=== PATIENT | female | born 1930 | race Caucasian/White ===

== ENCOUNTER → 2017-04-07 | Outpatient (CLI) | payer MEDICARE, BC ==
[2015-08-08 15:00] VITALS: BP 164/89
[~2017-04-07] MED LIST: ATOR20TA PO; DABI75CA3 PO; FURO-69 PO; LEVO75TA PO; METO-269 PO
--- NOTE | 2017-04-07 14:28 | CARD ---
APPROVED REPORT EXAM: Two-dimensional and M-mode echocardiogram with Doppler and color Doppler. Other Information Quality : Good INDICATION Atrial Fibrillation 2D DIMENSIONS Left Atrium(2D)3.4 (1.6-4.0cm)IVSd1.0 (0.7-1.1cm) Aortic Root(2D)2.7 (2.0-3.7cm)LVDd3.9 (3.9-5.9cm) LVOT Diameter1.8 (1.8-2.4cm)PWd1.0 (0.7-1.1cm) LVDs2.8 (2.5-4.0cm)FS (%) 28.3 % SV37.0 mlLVEF(%)55.3 (>50%) Aortic Valve AoV Peak Teddy.144.8cm/sAoV VTI26.5cm AO Peak GR.8.4mmHgLVOT Peak Teddy.99.7cm/s AO Mean GR.4mmHgAVA (VMAX)1.70cm2 MILAD (VTI)1.80cm2 Mitral Valve MV E Oicenxiv81.7cm/sMV DECEL [id number] MV A Oprqnqbl09.5cm/sE/A Ratio0.8 Tricuspid Valve TR P. Qkmtvejg508oa/sRAP [id number] TR Peak Gr.06euZrYVAL75nlXu LEFT VENTRICLE The left ventricle is normal size. There is normal left ventricular wall thickness. Left ventricle sy stolic function is low normal. The Ejection Fraction is 50-55%. There is normal LV segmental wall mot ion. Tissue Doppler imaging reveals abnormal left ventricular diastolic dysfunction. RIGHT VENTRICLE The right ventricle is normal size. The right ventricular systolic function is normal. ATRIA The left atrium size is normal. The right atrium size is normal. The interatrial septum is intact wit h no evidence for an atrial septal defect or patent foramen ovale as noted on 2-D or Doppler imaging. AORTIC VALVE The aortic valve is mildly thickened but opens well. Doppler and Color Flow revealed trace to mild ao rtic regurgitation. There is no significant aortic valvular stenosis. MITRAL VALVE The mitral valve is calcified but opens well. There is no evidence of mitral valve prolapse. There is no mitral valve stenosis. Doppler and Color-flow revealed mild mitral regurgitation. TRICUSPID VALVE The tricuspid valve is normal in structure. Doppler and Color Flow revealed mild tricuspid regurgitat ion. The PA pressure was estimated at 27 mmHg. There is no tricuspid valve prolapse or vegetation. Th ere is no tricuspid valve stenosis. PULMONIC VALVE The pulmonary valve is normal in structure and function. Doppler and Color Flow revealed no pulmonic valvular regurgitation. There is no pulmonic valvular stenosis. GREAT VESSELS The aortic root is normal in size. The ascending aorta is normal in size. The IVC is normal in size a nd collapses >50% with inspiration. PERICARDIAL EFFUSION There is no pleural effusion. There is no evidence of significant pericardial effusion. Critical Notification Critical Value: No <Conclusion> The left ventricle is normal size. Left ventricle systolic function is low normal. The Ejection Fraction is 50-55%. There is no significant aortic valvular stenosis. Doppler and Color Flow revealed trace to mild aortic regurgitation. Doppler and Color-flow revealed mild mitral regurgitation. Doppler and Color Flow revealed mild tricuspid regurgitation. The PA pressure was estimated at 27 mmHg.
== END | disposition home or self-care (01) ==
LOC: ECHO 12:55
PROVIDERS: ATTEND Internal Medicine Cardiovascular Disease
DX: I08.1 Rheumatic disorders of both mitral and tricuspid valves (principal); I48.0 Paroxysmal atrial fibrillation
CPT/HCPCS: 93306

== ENCOUNTER 2018-07-19 14:35 | Inpatient (IN) | payer MEDICARE ==
[~2018-07-19] VITALS: Ht 154.9 cm; Wt 74.9 kg
[~2018-07-19 14:35] MED LIST changes: +AMLO10TA8 PO; +ASPI-630 PO; +ASPI325T11 PO; +CETI10TA16 PO; +IPRA3AMP29 NEB; +METO50TA4 PO; +OSEL30CA PO; +PRED20TA PO; +[UNRECOGNIZED DRUG - CODE] MC
[2018-07-19 15:51] LABS: BASO % 0 % (0-3); EOS # 0.1 x10^3/uL (0.0-0.7); EOS % 2 % (0-3); HEMATOCRIT 38.7 % (36.0-47.0); HEMOGLOBIN 12.7 g/dL (12.0-15.5); LYMPH # 1.8 x10^3/uL (1.0-4.8); LYMPH % 20 % (24-48); MEAN CORPUSCULAR HEMOGLOBIN 31 pg (25-35); MEAN CORPUSCULAR HGB CONC 33 g/dL (31-37); MEAN CORPUSCULAR VOLUME 95 fL (79-100); MONO # 0.6 x10^3/uL (0.0-1.1); MONO % 7 % (0-9); NEUT # 6.6 x10^3uL (1.8-7.7); NEUT % 72 % (31-73); PLATELET COUNT 356 x10^3/uL (140-400); RED BLOOD COUNT 4.05 x10^6/uL (3.50-5.40); RED CELL DISTRIBUTION WIDTH 15.1 % (11.5-14.5); WHITE BLOOD COUNT 9.3 x10^3/uL (4.0-11.0)
[2018-07-19 15:52] LABS: CALCIUM 9.5 mg/dL (8.5-10.1); CREATININE 1.1 mg/dL (0.6-1.0); GFR 46.8; POTASSIUM 3.4 mmol/L (3.5-5.1)
[2018-07-19 16:00] LABS: ALBUMIN 2.6 g/dL (3.4-5.0); ALBUMIN/GLOBULIN RATIO 0.7 (1.0-1.7); MAGNESIUM 2.3 mg/dL (1.8-2.4); TOTAL BILIRUBIN 0.4 mg/dL (0.2-1.0); TOTAL PROTEIN 6.3 g/dL (6.4-8.2)
[2018-07-19 16:02] LABS: PROTHROMBIN TIME PATIENT 14.7 SEC (11.7-14.0)
--- NOTE | 2018-07-19 16:16 | RAD ---
CHEST AP ONLY History: Short of breath Comparison: July 10, 2018. The heart size is mildly enlarged. Aorta is very tortuous. Air trapping compatible with emphysema. No evidence of a pneumothorax, pleural effusion or focal airspace consolidation. There are coarse markings in the right upper lobe, likely due to scarring or fibrosis, similar to previous exam. IMPRESSION: No acute infiltrate is seen. Right upper lobe markings appear chronic. Electronically signed by: Bethel Dawson MD (07/19/2018 4:13 PM) [facility]
--- NOTE | 2018-07-19 16:26 | RAD ---
CT HEAD WO CONTRAST Indication: DIZZINESS, HEADACHE
PREVIOUS Exposure: One or more of the following individualized dose reduction techniques were utilized for this examination: 1. Automated exposure control 2. Adjustment of the mA and/or kV according to patient size 3. Use of iterative reconstruction technique. Comparison: July 04, 2018. FINDINGS: Posterior fossa unremarkable. Generalized atrophy. No acute intracranial hemorrhage, mass effect, midline shift or abnormal extra-axial fluid collection. Low-density in the white matter bilaterally, a nonspecific finding, but which is commonly due to chronic small vessel ischemic disease in a patient of this age. Visualized orbits unremarkable. Partially visualized sinuses are clear. No evidence of acute skull abnormality. IMPRESSION: Chronic findings appear stable. No acute intracranial hemorrhage or mass effect. Electronically signed by: Bethel Dawson MD (07/19/2018 4:23 PM) [facility]
--- NOTE | 2018-07-19 16:54 | PHYS DOC ---
Past Medical History Past Medical History: Ovarian Cyst, TIA Additional Past Medical Histor: APHASIA Past Surgical History: Tonsillectomy Additional Past Surgical Histo: CYST REMOVED FROM OVARY Alcohol Use: None Drug Use: None Adult General Chief Complaint Chief Complaint: NEAR SYNCOPE [facility] HPI Patient is a 87 year old female who presents to the emergency department with complaints of continued generalized weakness and dizziness after recently being admitted for syncope and acute delirium related to influenza A. Patient states she was admitted from July 04 to July 15, 2018. she states that she continues to pass out even while sitting in her chair. She is afraid that she might fall, she denies any recent falls. she denies any fever, chest pain, shortness of breath, palpitations, nausea, vomiting, diarrhea, abdominal pain, vision changes, or swelling of extremities. she reports having frequent frontal intermittent headaches. She denies any pain at this time. Review of Systems Review of Systems Constitutional: Denies fever or chills [] Eyes: Denies change in visual acuity, redness, or eye pain [] HENT: Denies ear pain or sore throat; reports nasal congestion [] Respiratory: Denies wheezing,or shortness of breath; reports dry cough [] Cardiovascular: denies chest pain or palpitations,No additional information not addressed in HPI [] GI: Denies abdominal pain, nausea, vomiting, bloody stools or diarrhea [] : Denies dysuria or hematuria [] Musculoskeletal: Denies back pain or joint pain [] Integument: Denies rash or skin lesions [] Neurologic: Denies focal weakness or sensory changes; See HPI Endocrine: Denies polyuria or polydipsia [] Complete systems were reviewed and found to be within normal limits, except as documented in this note. Allergies Allergies Allergies Coded Allergies Type Severity Reaction Last Updated Verified Penicillins Allergy Intermediate 11/02/17 Yes Physical Exam Physical Exam Constitutional: Well developed, well nourished, no acute distress, non-toxic appearance. [] HENT: Normocephalic, atraumatic, bilateral external ears normal, oropharynx moist, no oral exudates, nose normal. [] Eyes: PERRLA, EOMI, conjunctiva normal, no discharge. [] Neck: Normal range of motion, no stridor. [] Cardiovascular:Heart rate regular rhythm, Lungs & Thorax: Bilateral breath sounds clear to auscultation [] Abdomen: Bowel sounds normal, soft, no tenderness, no masses, no pulsatile masses. [] Skin: Warm, dry, no erythema, no rash. [] Extremities: No cyanosis, ROM intact, no edema, no deformities. Neurologic: Alert and oriented X 3, normal motor function, normal sensory function, no focal deficits noted. [] Psychologic: Affect normal, judgement normal, mood normal. [] Current Patient Data Vital Signs Lab Values Laboratory Tests Test 07/19/18 15:37 White Blood Count 9.3 x10^3/uL (4.0-11.0) Red Blood Count 4.05 x10^6/uL (3.50-5.40) Hemoglobin 12.7 g/dL (12.0-15.5) Hematocrit 38.7 % (36.0-47.0) Mean Corpuscular Volume 95 fL (79-100) Mean Corpuscular Hemoglobin 31 pg (25-35) Mean Corpuscular Hemoglobin Concent 33 g/dL (31-37) Red Cell Distribution Width 15.1 % (11.5-14.5) H Platelet Count 356 x10^3/uL (140-400) Neutrophils (%) (Auto) 72 % (31-73) Lymphocytes (%) (Auto) 20 % (24-48) L Monocytes (%) (Auto) 7 % (0-9) Eosinophils (%) (Auto) 2 % (0-3) Basophils (%) (Auto) 0 % (0-3) Neutrophils # (Auto) 6.6 x10^3uL (1.8-7.7) Lymphocytes # (Auto) 1.8 x10^3/uL (1.0-4.8) Monocytes # (Auto) 0.6 x10^3/uL (0.0-1.1) Eosinophils # (Auto) 0.1 x10^3/uL (0.0-0.7) Basophils # (Auto) 0.0 x10^3/uL (0.0-0.2) Prothrombin Time 14.7 SEC (11.7-14.0) H Prothrombin Time INR 1.2 (0.8-1.1) H Sodium Level 143 mmol/L (136-145) Potassium Level 3.4 mmol/L (3.5-5.1) L Chloride Level 106 mmol/L (98-107) Carbon Dioxide Level 25 mmol/L (21-32) Anion Gap 12 (6-14) Blood Urea Nitrogen 26 mg/dL (7-20) H Creatinine 1.1 mg/dL (0.6-1.0) H Estimated GFR (Cockcroft-Gault) 46.8 BUN/Creatinine Ratio 24 (6-20) H Glucose Level 125 mg/dL (70-99) H Calcium Level 9.5 mg/dL (8.5-10.1) Magnesium Level 2.3 mg/dL (1.8-2.4) Total Bilirubin 0.4 mg/dL (0.2-1.0) Aspartate Amino Transferase (AST) 19 U/L (15-37) Alanine Aminotransferase (ALT) 26 U/L (14-59) Alkaline Phosphatase 76 U/L (46-116) Troponin I Quantitative 0.024 ng/mL (0.000-0.055) Total Protein 6.3 g/dL (6.4-8.2) L Albumin 2.6 g/dL (3.4-5.0) L Albumin/Globulin Ratio 0.7 (1.0-1.7) L Laboratory Tests 07/19/18 15:37 Laboratory Tests 07/19/18 15:37 EKG EKG 1527 SR Leftward axis, no STEMI rate 63, read by Dr. Kemp[] Radiology/Procedures Radiology/Procedures PROCEDURE: CHEST AP ONLY CHEST AP ONLY History: Short of breath Comparison: July 10, 2018. The heart size is mildly enlarged. Aorta is very tortuous. Air trapping compatible with emphysema. No evidence of a pneumothorax, pleural effusion or focal airspace consolidation. There are coarse markings in the right upper lobe, likely due to scarring or fibrosis, similar to previous exam. IMPRESSION: No acute infiltrate is seen. Right upper lobe markings appear chronic.[] PROCEDURE: CT HEAD WO CONTRAST CT HEAD WO CONTRAST Indication: DIZZINESS, HEADACHE
PREVIOUS Exposure: One or more of the following individualized dose reduction techniques were utilized for this examination: 1. Automated exposure control 2. Adjustment of the mA and/or kV according to patient size 3. Use of iterative reconstruction technique. Comparison: July 04, 2018. FINDINGS: Posterior fossa unremarkable. Generalized atrophy. No acute intracranial hemorrhage, mass effect, midline shift or abnormal extra-axial fluid collection. Low-density in the white matter bilaterally, a nonspecific finding, but which is commonly due to chronic small vessel ischemic disease in a patient of this age. Visualized orbits unremarkable. Partially visualized sinuses are clear. No evidence of acute skull abnormality. IMPRESSION: Chronic findings appear stable. No acute intracranial hemorrhage or mass effect. Course & Med Decision Making Course & Med Decision Making Pertinent Labs and Imaging studies reviewed. (See chart for details) dx: Generalized weakness, syncope [address] Wall [] Aly Disclaimer Dragmiley Disclaimer This electronic medical record was generated, in whole or in part, using a voice recognition dictation system. Departure Departure Impression: Primary Impression: Generalized weakness Additional Impression: Syncopal episodes Disposition: ADMITTED INPATIENT Admitting Physician: Berna Wall Condition: STABLE Referrals: VIGNESH HOWARD MD (PCP) Scripts Calcium Carbonate (CALCIUM CARBONATE) 200 Mg Tab.chew 1000 MG PO PRN AFTMEALHC PRN for INDIGESTION for 14 Days, #30 TAB.CHEW Prov: SERAFIN BARRAGAN MD 07/22/18 Potassium Chloride (KLOR-CON M20) 20 Meq Tab.er.prt 20 MEQ PO DAILYWBKFT for SUPPLEMENT for 14 Days, #14 TAB.SR Prov: SERAFIN BARRAGAN MD 07/22/18 Apixaban (ELIQUIS) 5 Mg Tablet 5 MG PO BID for LUNG CLOT for 7 Days, #14 TAB Prov: SERAFIN BARRAGAN MD 07/22/18 Problem Qualifiers Additional Impression: Syncopal episodes Syncope type: unspecified Qualified Codes: R55 - Syncope and collapse RIANA YOUNG ENVIRONMENTAL PERMITTING SPECIALIST Jul 19, 2018 16:54
[2018-07-19 19:02] LABS: BILIRUBIN,URINE NEGATIVE (NEG); CLARITY,URINE CLEAR; COLOR,URINE YELLOW; NITRITE,URINE NEGATIVE (NEG); PROTEIN,URINE NEGATIVE (NEG-TRACE)
[2018-07-19 19:13] LABS: RBC,URINE OCC /HPF (0-2)
[2018-07-19 19:14] LABS: BACTERIA,URINE MANY /HPF (0-FEW); SQUAMOUS EPITHELIAL CELL,UR MANY /LPF
--- NOTE | 2018-07-19 21:26 | PDOC1 ---
History and Physical Date of Admission Date of Admission DATE: 07/19/18 TIME: 21:22 History of Present Illness History of Present Illness Miss govea was hospitalized her 07/04 to 07/15 s/p syncope and acute deilrium related to Influenza A. she return to ER, with complaint that she still feels terrrible. She is weak, and has dizzyness and feels ill if she turns her head to the side. She still feels weak and that she might fall, and she complains that she is passing out while sitting in her chair. prior falls, none recent Past Medical History Cardiovascular: AFIB, HTN, GA Pulmonary: COPD CENTRAL NERVOUS SYSTEM: CVA Renal/: No pertinent hx Endocrine: Hypothyroidism Past Surgical History Past Surgical History: Appendectomy, Cholecystectomy, Tonsillectomy Family History Family History: Heart Disease, Hypertension Family History: Parent Social History Smoke: No ALCOHOL: none Drugs: None Current Problem List Problem List Problems Medical Problems: (1) Syncopal episodes Status: Acute Current Medications Current Medications Active Scripts Active Flyp Nebulizer (Nebulizer) 1 Each Each Each MC QIDPRN PRN PRN Cough/SOB 4 times daily for COPD/Influenza Duoneb 0.5-3(2.5) Mg/3 Ml (Albuterol/Ipratropium) 3 Ml Ampul.neb 3 Ml NEB RTQID 30 Days Prednisone 20 Mg Tablet 20 Mg PO DAILY 2 Days Toprol Xl (Metoprolol Succinate) 50 Mg Tab.er.24h 50 Mg PO BID 30 Days Amlodipine Besylate 10 Mg Tablet 10 Mg PO DAILY 30 Days Tamiflu (Oseltamivir Phosphate) 30 Mg Capsule 30 Mg PO BID 2 Days Aspirin Ec (Aspirin) 325 Mg Tablet.dr 1 Tab PO DAILY Cetirizine Hcl 10 Mg Tablet 10 Mg PO DAILY MDD 1 Reported Aspirin 81 Mg Tab.chew 1 Tab PO DAILY Lipitor (Atorvastatin Calcium) 20 Mg Tablet 20 Mg PO DAILY08 7 Days Pradaxa (Dabigatran Etexilate Mesylate) 75 Mg Capsule 75 Mg PO Synthroid (Levothyroxine Sodium) 75 Mcg Tablet 100 Mcg PO DAILY06 7 Days Lasix (Furosemide) 20 Mg Tablet 20 Mg PO Allergies Allergies: Coded Allergies: Penicillins (Verified Allergy, Intermediate, 11/02/17) ROS General: YES: Fatigue, Malaise, Appetite PSYCHOLOGICAL ROS: YES: Memory difficulties, Sleep disturbances Eyes: No Blurry vision, No Decreased vision, No Double vision, No Dry eyes, No Excessive tearing, No Eye Pain, No Itchy Eyes, No Loss of vision, No Photophobia , No Scotomata, No Uses contacts, No Uses glasses, No Other HEENT: YES: Vertigo; No: Heacaches, Visual Changes, Hearing change, Nasal congestion, Nasal discharge, Oral lesions, Sinus pain, Sore Throat, Epistaxis, Sneezing, Snoring, Tinnitus, Vocal changes, Other Respiratory: No: Cough, Hemoptysis, Orthopnea, Pleuritic Pain, Shortness of breath, SOB with excertion, Sputum Changes, Stridor, Tachypnea, Wheezing, Other Cardiovascular: No Chest Pain, No Palpitations, No Orthopnea, No Paroxysmal Noc. Dyspnea, No Edema, No Lt Headedness, No Other Gastrointestinal: No Nausea, No Vomiting, No Abdominal Pain, No Diarrhea, No Constipation, No Melena, No Hematochezia, No Other Genitourinary: No Dysuria, No Frequency, No Incontinence, No Hematuria, No Retention, No Discharge, No Urgency, No Pain, No Flank Pain, No Other, No , No , No , No , No , No , No Musculoskeletal: Yes Gait Disturbance, Yes Muscular Weakness Neurological: Yes Gait Disturbance; No Behavorial Changes, No Bowel/Bladder ControlChng, No Confusion, No Dizziness, No Headaches, No Impaired Coord/balance, No Memory Loss, No Numbness/ Tingling, No Seizures, No Speech Problems, No Tremors, No Visual Changes, No Weakness, No Other Skin: Yes Dry Skin; No Eczema, No Hair Changes, No Lumps, No Mole Changes, No Mottling, No Nail Changes, No Pruritus, No Rash, No Skin Lesion Changes, No Other, No Acne Physical Exam General: Alert, Oriented X3, No acute distress HEENT: Atraumatic, PERRLA, Mucous membr. moist/pink Lungs: Clear to auscultation, Normal air movement Heart: no murmurs Abdomen: Normal bowel sounds, Soft Extremities: No cyanosis, No edema Skin: No rashes, No significant lesion Neuro: Normal tone, Other (nystagmus, worst when realign to midline, no asterixis, finger to nose is poor, ) Vitals Vitals Vital Signs Date Time Temp Pulse Resp B/P (MAP) Pulse Ox O2 Delivery O2 Flow Rate FiO2 07/19/18 19:00 60 19 95 07/19/18 14:58 97.6 157/71 (99) Room Air 97.6 Labs Labs Laboratory Tests Test 07/19/18 15:37 07/19/18 18:52 07/19/18 19:25 White Blood Count 9.3 x10^3/uL (4.0-11.0) Red Blood Count 4.05 x10^6/uL (3.50-5.40) Hemoglobin 12.7 g/dL (12.0-15.5) Hematocrit 38.7 % (36.0-47.0) Mean Corpuscular Volume 95 fL (79-100) Mean Corpuscular Hemoglobin 31 pg (25-35) Mean Corpuscular Hemoglobin Concent 33 g/dL (31-37) Red Cell Distribution Width 15.1 % (11.5-14.5) Platelet Count 356 x10^3/uL (140-400) Neutrophils (%) (Auto) 72 % (31-73) Lymphocytes (%) (Auto) 20 % (24-48) Monocytes (%) (Auto) 7 % (0-9) Eosinophils (%) (Auto) 2 % (0-3) Basophils (%) (Auto) 0 % (0-3) Neutrophils # (Auto) 6.6 x10^3uL (1.8-7.7) Lymphocytes # (Auto) 1.8 x10^3/uL (1.0-4.8) Monocytes # (Auto) 0.6 x10^3/uL (0.0-1.1) Eosinophils # (Auto) 0.1 x10^3/uL (0.0-0.7) Basophils # (Auto) 0.0 x10^3/uL (0.0-0.2) Prothrombin Time 14.7 SEC (11.7-14.0) Prothromb Time International Ratio 1.2 (0.8-1.1) Sodium Level 143 mmol/L (136-145) Potassium Level 3.4 mmol/L (3.5-5.1) Chloride Level 106 mmol/L (98-107) Carbon Dioxide Level 25 mmol/L (21-32) Anion Gap 12 (6-14) Blood Urea Nitrogen 26 mg/dL (7-20) Creatinine 1.1 mg/dL (0.6-1.0) Estimated GFR (Cockcroft-Gault) 46.8 BUN/Creatinine Ratio 24 (6-20) Glucose Level 125 mg/dL (70-99) Calcium Level 9.5 mg/dL (8.5-10.1) Magnesium Level 2.3 mg/dL (1.8-2.4) Total Bilirubin 0.4 mg/dL (0.2-1.0) Aspartate Amino Transf (AST/SGOT) 19 U/L (15-37) Alanine Aminotransferase (ALT/SGPT) 26 U/L (14-59) Alkaline Phosphatase 76 U/L (46-116) Troponin I Quantitative 0.024 ng/mL (0.000-0.055) 0.031 ng/mL (0.000-0.055) Total Protein 6.3 g/dL (6.4-8.2) Albumin 2.6 g/dL (3.4-5.0) Albumin/Globulin Ratio 0.7 (1.0-1.7) Urine Collection Type Void Urine Color Yellow Urine Clarity Clear Urine pH 6.0 Urine Specific [place] 1.020 Urine Protein Negative mg/dL (NEG-TRACE) Urine Glucose (UA) Negative mg/dL (NEG) Urine Ketones (Stick) Negative mg/dL (NEG) Urine Blood Negative (NEG) Urine Nitrite Negative (NEG) Urine Bilirubin Negative (NEG) Urine Urobilinogen Dipstick 1.0 mg/dL (0.2 mg/dL) Urine Leukocyte Esterase Moderate (NEG) Urine RBC Occ /HPF (0-2) Urine WBC 11-20 /HPF (0-4) Urine Squamous Epithelial Cells Many /LPF Urine Bacteria Many /HPF (0-FEW) Urine Mucus Marked /LPF Laboratory Tests Test 07/19/18 15:37 07/19/18 18:52 07/19/18 19:25 White Blood Count 9.3 x10^3/uL (4.0-11.0) Red Blood Count 4.05 x10^6/uL (3.50-5.40) Hemoglobin 12.7 g/dL (12.0-15.5) Hematocrit 38.7 % (36.0-47.0) Mean Corpuscular Volume 95 fL (79-100) Mean Corpuscular Hemoglobin 31 pg (25-35) Mean Corpuscular Hemoglobin Concent 33 g/dL (31-37) Red Cell Distribution Width 15.1 % (11.5-14.5) Platelet Count 356 x10^3/uL (140-400) Neutrophils (%) (Auto) 72 % (31-73) Lymphocytes (%) (Auto) 20 % (24-48) Monocytes (%) (Auto) 7 % (0-9) Eosinophils (%) (Auto) 2 % (0-3) Basophils (%) (Auto) 0 % (0-3) Neutrophils # (Auto) 6.6 x10^3uL (1.8-7.7) Lymphocytes # (Auto) 1.8 x10^3/uL (1.0-4.8) Monocytes # (Auto) 0.6 x10^3/uL (0.0-1.1) Eosinophils # (Auto) 0.1 x10^3/uL (0.0-0.7) Basophils # (Auto) 0.0 x10^3/uL (0.0-0.2) Prothrombin Time 14.7 SEC (11.7-14.0) Prothromb Time International Ratio 1.2 (0.8-1.1) Sodium Level 143 mmol/L (136-145) Potassium Level 3.4 mmol/L (3.5-5.1) Chloride Level 106 mmol/L (98-107) Carbon Dioxide Level 25 mmol/L (21-32) Anion Gap 12 (6-14) Blood Urea Nitrogen 26 mg/dL (7-20) Creatinine 1.1 mg/dL (0.6-1.0) Estimated GFR (Cockcroft-Gault) 46.8 BUN/Creatinine Ratio 24 (6-20) Glucose Level 125 mg/dL (70-99) Calcium Level 9.5 mg/dL (8.5-10.1) Magnesium Level 2.3 mg/dL (1.8-2.4) Total Bilirubin 0.4 mg/dL (0.2-1.0) Aspartate Amino Transf (AST/SGOT) 19 U/L (15-37) Alanine Aminotransferase (ALT/SGPT) 26 U/L (14-59) Alkaline Phosphatase 76 U/L (46-116) Troponin I Quantitative 0.024 ng/mL (0.000-0.055) 0.031 ng/mL (0.000-0.055) Total Protein 6.3 g/dL (6.4-8.2) Albumin 2.6 g/dL (3.4-5.0) Albumin/Globulin Ratio 0.7 (1.0-1.7) Urine Collection Type Void Urine Color Yellow Urine Clarity Clear Urine pH 6.0 Urine Specific [place] 1.020 Urine Protein Negative mg/dL (NEG-TRACE) Urine Glucose (UA) Negative mg/dL (NEG) Urine Ketones (Stick) Negative mg/dL (NEG) Urine Blood Negative (NEG) Urine Nitrite Negative (NEG) Urine Bilirubin Negative (NEG) Urine Urobilinogen Dipstick 1.0 mg/dL (0.2 mg/dL) Urine Leukocyte Esterase Moderate (NEG) Urine RBC Occ /HPF (0-2) Urine WBC 11-20 /HPF (0-4) Urine Squamous Epithelial Cells Many /LPF Urine Bacteria Many /HPF (0-FEW) Urine Mucus Marked /LPF VTE Prophylaxis Ordered VTE Prophylaxis Devices: Yes VTE Pharmacological Prophylaxi: Yes Assessment/Plan Assessment/Plan dizzyness recent Influenza A causing Syncope. chronic encephalopathy. mild cognitive impairment w. 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 weakness and debility CONCEPCION CEHN MD Jul 19, 2018 21:26
[2018-07-19 23:47] VITALS: BP 105/69
[2018-07-20] VITALS (9 sets, daily range): BP systolic 105–127; BP diastolic 50–67
[2018-07-20] MEDS ORDERED: IPRATRPIUM/ALBUTEROL 0.5/2.5MG 3 ML NEBU. NEB ONE (01:15)
[2018-07-20] MEDS: LEVOTHYROXINE 100 MCG TABLET PO SCH (06:00)
[2018-07-20] MEDS: IPRATRPIUM/ALBUTEROL 0.5/2.5MG 3 ML NEBU. NEB SCH ×4 (07:17→20:34)
--- NOTE | 2018-07-20 07:17 | EKG ---
[facility] [address] [place] [address] Test Date: 2018-07-19 Test Time: 15:27:35 Pat Name: Emily GUERRERO Department: Room: [facility] 1 Gender: F Orthopaedic Doctor: : [id number] Requested By: RIANA YOUNG Order Number: [id number] Reading MD: Red Gregory Measurements Intervals [place] Rate: 63 P: ID: QRS: -27 QRSD: 80 T: -38 QT: 470 QTc: 485 Interpretive Statements SINUS RHYTHM LEFTWARD AXIS LOW LIMB LEAD VOLTAGE QRS(T) CONTOUR ABNORMALITY CONSIDER ANTEROSEPTAL MYOCARDIAL DAMAGE CONSISTENT WITH INFERIOR INFARCT PROBABLY OLD ABNORMAL ECG Electronically Signed On 07-28-2018 10:41:19 [employer]IPE WASHER by Red Gregory
[2018-07-20] MEDS ORDERED: FUROSEMIDE 20 MG TABLET PO SCH (09:00)
[2018-07-20] MEDS ORDERED: OSELTAMIVIR 30 MG CAPSULE PO SCH (09:00)
[2018-07-20] MEDS ORDERED: DABIGATRAN ETEXILATE 75 MG CAPSULE. PO SCH (09:00)
[2018-07-20] MEDS ORDERED: predniSONE 20 MG TABLET PO SCH (09:00)
--- NOTE | 2018-07-20 09:02 | NUR ---
SW responding to a referral regarding rehab. Chart reviewed. Pt lives at home with spouse. Pt has been at [facility] recently and was discharged with [facility]. SW notified Eloise at [facility] about hospital admission. PT/OT pending. SW will await for PT/OT recommendation to evaluate dc needs. Will continue to follow.
--- NOTE | 2018-07-20 12:51 | NUR ---
[facility] following pt. PT/OT recommends SNU. Spoke with pt at bedside regarding PT/OT recommendation. Pt declined SNU evaluation stating insurance has denied her a couple of time and she just wants to go home with [facility]. DECLAN informed pt she can try to be screened for SNU again but pt reported tomorrow is her 's birthday and she rather go home. Pt wants to continue home health with [facility] and wants to do therapy at home. Pt reported she will contact [facility]CL[facility] if she changes her mind. JELLY RN. Will continue to follow.
--- NOTE | 2018-07-20 13:30 | PDOC2 ---
CABRERA SAN DIRECTOR OF TRAINING 07/20/18 1330: CARDIAC CONSULT DATE OF CONSULT Date of Consult DATE: 07/20/18 TIME: 13:26 REASON FOR CONSULT Reason for Consult: Elevated troponin REFERRING PHYSICIAN Referring Physician: Dr. Ayon SOURCE Source: Chart review, Patient HISTORY OF PRESENT ILLNESS HISTORY OF PRESENT ILLNESS This is an 87 yo female who presented secondary to ongoing weakness, dizziness. Was hospitalized from 07/04-07/15/2018 secondary to near syncope and influenza. Returned to the ED yesterday as she continues to feel poor. Complains of dizziness and weakness. Dizziness much worse when she turns her head. Was very weak yesterday. Was unable to walk. Has brief passing out episodes. PAST MEDICAL HISTORY Past Medical History Cardiovascular: AFIB, HTN, HI Pulmonary: COPD CENTRAL NERVOUS SYSTEM: CVA ENT: No pertinent hx Renal/: No pertinent hx Endocrine: Hypothyroidism Dermatology: No pertinent hx PAST SURGICAL HISTORY Past Surgical History Appendectomy, Cholecystectomy, Tonsillectomy FAMILY HISTORY Family History: Hypertension SOCIAL HISTORY Social History Smoke: No ALCOHOL: none Drugs: None Lives: with Family CURRENT MEDICATIONS CURRENT MEDICATIONS Current Medications Medications (Trade) Dose Ordered Sig/Jamee Route PRN Reason Start Time Stop Time Status Last Admin Dose Admin Albuterol/ Ipratropium (Duoneb) 3 ml RTQID NEB 07/20/18 08:00 07/20/18 11:17 Albuterol/ Ipratropium (Duoneb) 3 ml 1X ONCE NEB 07/20/18 01:15 07/20/18 01:16 DC 07/20/18 01:19 ALLERGIES ALLERGIES: Coded Allergies: Penicillins (Verified Allergy, Intermediate, 11/02/17) ROS Review of System 14 point ROS conducted with pertinent positives noted above in HPI PHYSICAL EXAM PHYSICAL EXAM General: Alert, Oriented X3, Cooperative, No acute distress HEENT: Atraumatic, PERRLA, Lungs: Clear to auscultation Heart: Regular rate, Normal S1, Normal S2, No murmurs Abdomen: Normal bowel sounds, Soft Extremities: No edema Skin: No rashes Neuro: Normal speech Psych/Mental Status: Mental status NL, Mood NL MUSCULOSKELETAL: Osteoarthritic changes both hands VITALS VITALS Vital Signs Date Time Temp Pulse Resp B/P (MAP) Pulse Ox O2 Delivery O2 Flow Rate FiO2 07/20/18 11:17 94 Room Air 07/20/18 11:00 97.7 67 16 105/54 (71) 97.7 LABS Lab: Laboratory Tests Test 07/19/18 15:37 07/19/18 18:52 07/19/18 19:25 07/20/18 11:55 White Blood Count 9.3 x10^3/uL (4.0-11.0) Red Blood Count 4.05 x10^6/uL (3.50-5.40) Hemoglobin 12.7 g/dL (12.0-15.5) Hematocrit 38.7 % (36.0-47.0) Mean Corpuscular Volume 95 fL (79-100) Mean Corpuscular Hemoglobin 31 pg (25-35) Mean Corpuscular Hemoglobin Concent 33 g/dL (31-37) Red Cell Distribution Width 15.1 % (11.5-14.5) Platelet Count 356 x10^3/uL (140-400) Neutrophils (%) (Auto) 72 % (31-73) Lymphocytes (%) (Auto) 20 % (24-48) Monocytes (%) (Auto) 7 % (0-9) Eosinophils (%) (Auto) 2 % (0-3) Basophils (%) (Auto) 0 % (0-3) Neutrophils # (Auto) 6.6 x10^3uL (1.8-7.7) Lymphocytes # (Auto) 1.8 x10^3/uL (1.0-4.8) Monocytes # (Auto) 0.6 x10^3/uL (0.0-1.1) Eosinophils # (Auto) 0.1 x10^3/uL (0.0-0.7) Basophils # (Auto) 0.0 x10^3/uL (0.0-0.2) Prothrombin Time 14.7 SEC (11.7-14.0) Prothromb Time International Ratio 1.2 (0.8-1.1) Sodium Level 143 mmol/L (136-145) Potassium Level 3.4 mmol/L (3.5-5.1) Chloride Level 106 mmol/L (98-107) Carbon Dioxide Level 25 mmol/L (21-32) Anion Gap 12 (6-14) Blood Urea Nitrogen 26 mg/dL (7-20) Creatinine 1.1 mg/dL (0.6-1.0) Estimated GFR (Cockcroft-Gault) 46.8 BUN/Creatinine Ratio 24 (6-20) Glucose Level 125 mg/dL (70-99) Calcium Level 9.5 mg/dL (8.5-10.1) Magnesium Level 2.3 mg/dL (1.8-2.4) Total Bilirubin 0.4 mg/dL (0.2-1.0) Aspartate Amino Transf (AST/SGOT) 19 U/L (15-37) Alanine Aminotransferase (ALT/SGPT) 26 U/L (14-59) Alkaline Phosphatase 76 U/L (46-116) Troponin I Quantitative 0.024 ng/mL (0.000-0.055) 0.031 ng/mL (0.000-0.055) 0.029 ng/mL (0.000-0.055) Total Protein 6.3 g/dL (6.4-8.2) Albumin 2.6 g/dL (3.4-5.0) Albumin/Globulin Ratio 0.7 (1.0-1.7) Urine Collection Type Void Urine Color Yellow Urine Clarity Clear Urine pH 6.0 Urine Specific [place] 1.020 Urine Protein Negative mg/dL (NEG-TRACE) Urine Glucose (UA) Negative mg/dL (NEG) Urine Ketones (Stick) Negative mg/dL (NEG) Urine Blood Negative (NEG) Urine Nitrite Negative (NEG) Urine Bilirubin Negative (NEG) Urine Urobilinogen Dipstick 1.0 mg/dL (0.2 mg/dL) Urine Leukocyte Esterase Moderate (NEG) Urine RBC Occ /HPF (0-2) Urine WBC 11-20 /HPF (0-4) Urine Squamous Epithelial Cells Many /LPF Urine Bacteria Many /HPF (0-FEW) Urine Mucus Marked /LPF ECHOCARDIOGRAM ECHOCARDIOGRAM <Conclusion> The left ventricular systolic function is normal and the ejection fraction is within normal range. EF 55% There is grossly normal LV segmental wall motion. Technically difficult study. DATE: 11/04/171126 <Conclusion> The left ventricle is normal size. The left ventricular systolic function is normal and the ejection fraction is within normal range. The Ejection Fraction is 55-60%. There is borderline to mild concentric left ventricular hypertrophy. There is no significant aortic valvular stenosis. Doppler and Color Flow revealed trace aortic regurgitation. Doppler and Color-flow revealed trace mitral regurgitation. Doppler and Color Flow revealed mild tricuspid regurgitation. There is mild pulmonary hypertension. The PA pressure was estimated at 35 mmHg. DATE: 07/06/18 1550 ASSESSMENT/PLAN ASSESSMENT/PLAN 1. Syncope: mixed features of subjective vertigo and dizziness. 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 EKG and rhythm strips reviewed from previous admission on presents. Given new RBBB, will obtain CTA to rule out PE. 2. PAFIB: maintaining SR on Amiodarone. EF and WM nml 3. Hypertension; controlled 4. Hypothyroidism; TSH on goal. replacement therapy 5. H/o CVA; CT head negative for acute changes 6. Acute bronchitis/influenza 07/11 7. UTI Recommendations Continue Amiodarone/metoprolol for rate/rhythm control Poor candidate for OAC given increased fall risk Secondary prevention measures ASA/statin for stroke prophylaxis. Plan for outpatient event monitor AIDEN BIRD MD 07/20/182044: CARDIAC CONSULT ASSESSMENT/PLAN ASSESSMENT/PLAN Patient seen and examined. Agree with PHYSICIAN EXECUTIVE's assessment and plan. Syncope of uncertain etiology With history of PAF, we will rule out SSS/tachy-gelacio with outpatient event monitor Agree with CT chest to rule out PE secondary to new onset RBBB on EKG Continue amiodarone for antiarrhythmic therapy Thank you for your consultation CABRERA SAN APRN Jul 20, 2018 13:30 AIDEN BIRD MD Jul 20, 2018 20:45
--- NOTE | 2018-07-20 13:51 | PDOC ---
PROGRESS NOTES History of Present Illness History of Present Illness Assessment/Plan Assessment/Plan dizziness recent Influenza A ASSOCIATED Syncope. chronic encephalopathy. mild cognitive impairment w. 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 weakness and debility a-fib rate controlled high fall risk Cerebral atrophy. plan tele neurology consult PT/OT/ST cardiology consult may need snf bed Vitals Vitals Vital Signs Date Time Temp Pulse Resp B/P (MAP) Pulse Ox O2 Delivery O2 Flow Rate FiO2 07/20/18 11:17 94 Room Air 07/20/18 11:00 97.7 67 16 105/54 (71) 97.7 Physical Exam General: Alert, Oriented X3, Cooperative, No acute distress Heart: Other (irrr) Lungs: Clear, Other Abdomen: Normal bowel sounds, Soft Extremities: No clubbing, No cyanosis, No edema Skin: No rashes, No significant lesion Labs LABS EXAM: Brain MRI without contrast. HISTORY: Dizziness. TECHNIQUE: Multiplanar, multisequence magnetic resonance imaging of the brain was performed without contrast. COMPARISON: Head CT dated 07/04/2018. FINDINGS: There is no restricted diffusion to suggest acute or subacute infarction. There is no susceptibility effect to suggest hemorrhage. There is no mass effect or midline shift. There is ventricular enlargement due to cerebral volume loss. There is no hydrocephalus. There are focal and confluent areas of T2/FLAIR hyperintensity within the cerebral white matter and taz, a nonspecific finding likely due to chronic small vessel disease. There are small foci of encephalomalacia within the cerebellar hemispheres, likely due to chronic infarction. There is evidence of left lens surgery. The paranasal sinuses are unremarkable. There is a small amount of fluid within the right mastoid air cells. There are normal flow voids within the cerebral vessels. IMPRESSION: 1. No acute intracranial finding. 2. Multiple areas of signal change throughout the cerebral white matter and taz, a nonspecific finding likely due to chronic small vessel disease. 3. 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 4. Cerebral atrophy. Electronically signed by: Joann High MD (07/06/2018 8:00 AM) [facility] DICTATED and SIGNED BY: JOANN HIGH MD CT HEAD WO CONTRAST Indication: DIZZINESS, HEADACHE
PREVIOUS Exposure: One or more of the following individualized dose reduction techniques were utilized for this examination: 1. Automated exposure control 2. Adjustment of the mA and/or kV according to patient size 3. Use of iterative reconstruction technique. Comparison: July 04, 2018. FINDINGS: Posterior fossa unremarkable. Generalized atrophy. No acute intracranial hemorrhage, mass effect, midline shift or abnormal extra-axial fluid collection. Low-density in the white matter bilaterally, a nonspecific finding, but which is commonly due to chronic small vessel ischemic disease in a patient of this age. Visualized orbits unremarkable. Partially visualized sinuses are clear. No evidence of acute skull abnormality. IMPRESSION: Chronic findings appear stable. No acute intracranial hemorrhage or mass effect. Electronically signed by: Bethel Dawson MD (07/19/2018 4:23 PM) [facility] Laboratory Tests Test 07/19/18 15:37 07/19/18 18:52 07/19/18 19:25 07/20/18 11:55 White Blood Count 9.3 x10^3/uL (4.0-11.0) Red Blood Count 4.05 x10^6/uL (3.50-5.40) Hemoglobin 12.7 g/dL (12.0-15.5) Hematocrit 38.7 % (36.0-47.0) Mean Corpuscular Volume 95 fL (79-100) Mean Corpuscular Hemoglobin 31 pg (25-35) Mean Corpuscular Hemoglobin Concent 33 g/dL (31-37) Red Cell Distribution Width 15.1 % (11.5-14.5) Platelet Count 356 x10^3/uL (140-400) Neutrophils (%) (Auto) 72 % (31-73) Lymphocytes (%) (Auto) 20 % (24-48) Monocytes (%) (Auto) 7 % (0-9) Eosinophils (%) (Auto) 2 % (0-3) Basophils (%) (Auto) 0 % (0-3) Neutrophils # (Auto) 6.6 x10^3uL (1.8-7.7) Lymphocytes # (Auto) 1.8 x10^3/uL (1.0-4.8) Monocytes # (Auto) 0.6 x10^3/uL (0.0-1.1) Eosinophils # (Auto) 0.1 x10^3/uL (0.0-0.7) Basophils # (Auto) 0.0 x10^3/uL (0.0-0.2) Prothrombin Time 14.7 SEC (11.7-14.0) Prothromb Time International Ratio 1.2 (0.8-1.1) Sodium Level 143 mmol/L (136-145) Potassium Level 3.4 mmol/L (3.5-5.1) Chloride Level 106 mmol/L (98-107) Carbon Dioxide Level 25 mmol/L (21-32) Anion Gap 12 (6-14) Blood Urea Nitrogen 26 mg/dL (7-20) Creatinine 1.1 mg/dL (0.6-1.0) Estimated GFR (Cockcroft-Gault) 46.8 BUN/Creatinine Ratio 24 (6-20) Glucose Level 125 mg/dL (70-99) Calcium Level 9.5 mg/dL (8.5-10.1) Magnesium Level 2.3 mg/dL (1.8-2.4) Total Bilirubin 0.4 mg/dL (0.2-1.0) Aspartate Amino Transf (AST/SGOT) 19 U/L (15-37) Alanine Aminotransferase (ALT/SGPT) 26 U/L (14-59) Alkaline Phosphatase 76 U/L (46-116) Troponin I Quantitative 0.024 ng/mL (0.000-0.055) 0.031 ng/mL (0.000-0.055) 0.029 ng/mL (0.000-0.055) Total Protein 6.3 g/dL (6.4-8.2) Albumin 2.6 g/dL (3.4-5.0) Albumin/Globulin Ratio 0.7 (1.0-1.7) Urine Collection Type Void Urine Color Yellow Urine Clarity Clear Urine pH 6.0 Urine Specific [place] 1.020 Urine Protein Negative mg/dL (NEG-TRACE) Urine Glucose (UA) Negative mg/dL (NEG) Urine Ketones (Stick) Negative mg/dL (NEG) Urine Blood Negative (NEG) Urine Nitrite Negative (NEG) Urine Bilirubin Negative (NEG) Urine Urobilinogen Dipstick 1.0 mg/dL (0.2 mg/dL) Urine Leukocyte Esterase Moderate (NEG) Urine RBC Occ /HPF (0-2) Urine WBC 11-20 /HPF (0-4) Urine Squamous Epithelial Cells Many /LPF Urine Bacteria Many /HPF (0-FEW) Urine Mucus Marked /LPF Assessment and Plan Assessmemt and Plan Problems Medical Problems: (1) Syncopal episodes Status: Acute Goal 3 - Ambulation Device * Roller Walker Goal 3 Assessment * Appropriate - Continue Goal 4 - Stairs Assistance Required * Stand-by Assistance Goal 4 - Number of Stairs * 1 Goal 4 - Device on Stairs * Roller Walker Goal 4 Assessment * Appropriate - Continue Treatment Plan * Therapeutic Exercise * Bed Mobility Training * Transfer training * Gait Training * Neuromuscular Re-Ed * Dynamic Balance Training Frequency of Treatment Expected * 7 visits/week Duration of Treatment Expected * 2 weeks Discharge Recommendations * Snf Unit Discharge Recommendation - DME * Rolling Walker needed * in order to complete ADLs * and ambulation safely Discharge Recommendation Comments * Will continue to assess for discharge needs Comment Review of Relevant I have reviewed the following items erica (where applicable) has been applied. Labs Laboratory Tests Test 07/19/18 15:37 07/19/18 18:52 07/19/18 19:25 07/20/18 11:55 White Blood Count 9.3 x10^3/uL (4.0-11.0) Red Blood Count 4.05 x10^6/uL (3.50-5.40) Hemoglobin 12.7 g/dL (12.0-15.5) Hematocrit 38.7 % (36.0-47.0) Mean Corpuscular Volume 95 fL (79-100) Mean Corpuscular Hemoglobin 31 pg (25-35) Mean Corpuscular Hemoglobin Concent 33 g/dL (31-37) Red Cell Distribution Width 15.1 % (11.5-14.5) Platelet Count 356 x10^3/uL (140-400) Neutrophils (%) (Auto) 72 % (31-73) Lymphocytes (%) (Auto) 20 % (24-48) Monocytes (%) (Auto) 7 % (0-9) Eosinophils (%) (Auto) 2 % (0-3) Basophils (%) (Auto) 0 % (0-3) Neutrophils # (Auto) 6.6 x10^3uL (1.8-7.7) Lymphocytes # (Auto) 1.8 x10^3/uL (1.0-4.8) Monocytes # (Auto) 0.6 x10^3/uL (0.0-1.1) Eosinophils # (Auto) 0.1 x10^3/uL (0.0-0.7) Basophils # (Auto) 0.0 x10^3/uL (0.0-0.2) Prothrombin Time 14.7 SEC (11.7-14.0) Prothromb Time International Ratio 1.2 (0.8-1.1) Sodium Level 143 mmol/L (136-145) Potassium Level 3.4 mmol/L (3.5-5.1) Chloride Level 106 mmol/L (98-107) Carbon Dioxide Level 25 mmol/L (21-32) Anion Gap 12 (6-14) Blood Urea Nitrogen 26 mg/dL (7-20) Creatinine 1.1 mg/dL (0.6-1.0) Estimated GFR (Cockcroft-Gault) 46.8 BUN/Creatinine Ratio 24 (6-20) Glucose Level 125 mg/dL (70-99) Calcium Level 9.5 mg/dL (8.5-10.1) Magnesium Level 2.3 mg/dL (1.8-2.4) Total Bilirubin 0.4 mg/dL (0.2-1.0) Aspartate Amino Transf (AST/SGOT) 19 U/L (15-37) Alanine Aminotransferase (ALT/SGPT) 26 U/L (14-59) Alkaline Phosphatase 76 U/L (46-116) Troponin I Quantitative 0.024 ng/mL (0.000-0.055) 0.031 ng/mL (0.000-0.055) 0.029 ng/mL (0.000-0.055) Total Protein 6.3 g/dL (6.4-8.2) Albumin 2.6 g/dL (3.4-5.0) Albumin/Globulin Ratio 0.7 (1.0-1.7) Urine Collection Type Void Urine Color Yellow Urine Clarity Clear Urine pH 6.0 Urine Specific [place] 1.020 Urine Protein Negative mg/dL (NEG-TRACE) Urine Glucose (UA) Negative mg/dL (NEG) Urine Ketones (Stick) Negative mg/dL (NEG) Urine Blood Negative (NEG) Urine Nitrite Negative (NEG) Urine Bilirubin Negative (NEG) Urine Urobilinogen Dipstick 1.0 mg/dL (0.2 mg/dL) Urine Leukocyte Esterase Moderate (NEG) Urine RBC Occ /HPF (0-2) Urine WBC 11-20 /HPF (0-4) Urine Squamous Epithelial Cells Many /LPF Urine Bacteria Many /HPF (0-FEW) Urine Mucus Marked /LPF Laboratory Tests Test 07/19/18 15:37 07/19/18 18:52 07/19/18 19:25 07/20/18 11:55 White Blood Count 9.3 x10^3/uL (4.0-11.0) Red Blood Count 4.05 x10^6/uL (3.50-5.40) Hemoglobin 12.7 g/dL (12.0-15.5) Hematocrit 38.7 % (36.0-47.0) Mean Corpuscular Volume 95 fL (79-100) Mean Corpuscular Hemoglobin 31 pg (25-35) Mean Corpuscular Hemoglobin Concent 33 g/dL (31-37) Red Cell Distribution Width 15.1 % (11.5-14.5) Platelet Count 356 x10^3/uL (140-400) Neutrophils (%) (Auto) 72 % (31-73) Lymphocytes (%) (Auto) 20 % (24-48) Monocytes (%) (Auto) 7 % (0-9) Eosinophils (%) (Auto) 2 % (0-3) Basophils (%) (Auto) 0 % (0-3) Neutrophils # (Auto) 6.6 x10^3uL (1.8-7.7) Lymphocytes # (Auto) 1.8 x10^3/uL (1.0-4.8) Monocytes # (Auto) 0.6 x10^3/uL (0.0-1.1) Eosinophils # (Auto) 0.1 x10^3/uL (0.0-0.7) Basophils # (Auto) 0.0 x10^3/uL (0.0-0.2) Prothrombin Time 14.7 SEC (11.7-14.0) Prothromb Time International Ratio 1.2 (0.8-1.1) Sodium Level 143 mmol/L (136-145) Potassium Level 3.4 mmol/L (3.5-5.1) Chloride Level 106 mmol/L (98-107) Carbon Dioxide Level 25 mmol/L (21-32) Anion Gap 12 (6-14) Blood Urea Nitrogen 26 mg/dL (7-20) Creatinine 1.1 mg/dL (0.6-1.0) Estimated GFR (Cockcroft-Gault) 46.8 BUN/Creatinine Ratio 24 (6-20) Glucose Level 125 mg/dL (70-99) Calcium Level 9.5 mg/dL (8.5-10.1) Magnesium Level 2.3 mg/dL (1.8-2.4) Total Bilirubin 0.4 mg/dL (0.2-1.0) Aspartate Amino Transf (AST/SGOT) 19 U/L (15-37) Alanine Aminotransferase (ALT/SGPT) 26 U/L (14-59) Alkaline Phosphatase 76 U/L (46-116) Troponin I Quantitative 0.024 ng/mL (0.000-0.055) 0.031 ng/mL (0.000-0.055) 0.029 ng/mL (0.000-0.055) Total Protein 6.3 g/dL (6.4-8.2) Albumin 2.6 g/dL (3.4-5.0) Albumin/Globulin Ratio 0.7 (1.0-1.7) Urine Collection Type Void Urine Color Yellow Urine Clarity Clear Urine pH 6.0 Urine Specific [place] 1.020 Urine Protein Negative mg/dL (NEG-TRACE) Urine Glucose (UA) Negative mg/dL (NEG) Urine Ketones (Stick) Negative mg/dL (NEG) Urine Blood Negative (NEG) Urine Nitrite Negative (NEG) Urine Bilirubin Negative (NEG) Urine Urobilinogen Dipstick 1.0 mg/dL (0.2 mg/dL) Urine Leukocyte Esterase Moderate (NEG) Urine RBC Occ /HPF (0-2) Urine WBC 11-20 /HPF (0-4) Urine Squamous Epithelial Cells Many /LPF Urine Bacteria Many /HPF (0-FEW) Urine Mucus Marked /LPF Medications Current Medications Albuterol/ Ipratropium (Duoneb) 3 ml RTQID NEB Last administered on 07/20/18at 11:17; Start 07/20/18 at 08:00 Albuterol/ Ipratropium (Duoneb) 3 ml 1X ONCE NEB Last administered on at 01:19; Start 07/20/18 at 01:15; Stop 07/20/18 at 01:16; Status DC Amlodipine Besylate (Norvasc) 10 mg DAILY PO ; Start 07/20/18 at 09:00 Aspirin (Ecotrin) 325 mg DAILYWBKFT PO ; Start 07/20/18 at 08:00 Atorvastatin Calcium (Lipitor) 20 mg DAILY08 PO ; Start 07/20/18 at 08:00 Cetirizine HCl (ZyrTEC) 10 mg DAILY PO ; Start 07/20/18 at 09:00 Dabigatran (Pradaxa) 75 mg DAILY PO ; Start 07/20/18 at 09:00 Furosemide (Lasix) 20 mg DAILY PO ; Start 07/20/18 at 09:00 Levothyroxine Sodium (Synthroid) 100 mcg DAILY06 PO ; Start 07/20/18 at 06:00 Metoprolol Succinate (Toprol Xl) 50 mg BID PO ; Start 07/20/18 at 09:00 Oseltamivir Phosphate (Tamiflu) 30 mg BID PO ; Start 07/20/18 at 09:00; Stop 07/25/18 at 08:59 Prednisone (Prednisone) 20 mg DAILY PO ; Start 07/20/18 at 09:00 Active Scripts Active Flyp Nebulizer (Nebulizer) 1 Each Each Each MC QIDPRN PRN PRN Cough/SOB 4 times daily for COPD/Influenza Duoneb 0.5-3(2.5) Mg/3 Ml (Albuterol/Ipratropium) 3 Ml Ampul.neb 3 Ml NEB RTQID 30 Days Prednisone 20 Mg Tablet 20 Mg PO DAILY 2 Days Toprol Xl (Metoprolol Succinate) 50 Mg Tab.er.24h 50 Mg PO BID 30 Days Amlodipine Besylate 10 Mg Tablet 10 Mg PO DAILY 30 Days Tamiflu (Oseltamivir Phosphate) 30 Mg Capsule 30 Mg PO BID 2 Days Aspirin Ec (Aspirin) 325 Mg Tablet.dr 1 Tab PO DAILY Cetirizine Hcl 10 Mg Tablet 10 Mg PO DAILY MDD 1 Reported Aspirin 81 Mg Tab.chew 1 Tab PO DAILY Lipitor (Atorvastatin Calcium) 20 Mg Tablet 20 Mg PO DAILY08 7 Days Pradaxa (Dabigatran Etexilate Mesylate) 75 Mg Capsule 75 Mg PO Synthroid (Levothyroxine Sodium) 75 Mcg Tablet 100 Mcg PO DAILY06 7 Days Lasix (Furosemide) 20 Mg Tablet 20 Mg PO Vitals/I & O Vital Sign - Last 24 Hours 07/19/18 07/19/18 07/19/18 07/19/18 14:58 15:30 16:00 16:30 Temp 97.6 97.6 Pulse 62 62 64 60 Resp 20 18 18 20 B/P (MAP) 157/71 (99) Pulse Ox 93 94 93 94 O2 Delivery Room Air 07/19/18 07/19/18 07/19/18 07/19/18 17:00 17:30 18:00 18:30 Pulse 58 60 58 56 Resp 16 16 16 18 Pulse Ox 95 97 95 94 07/19/18 07/19/18 07/19/18 07/20/18 19:00 20:00 23:47 01:14 Temp 97.9 97.9 Pulse 60 60 Resp 19 18 B/P (MAP) 105/69 (81) Pulse Ox 95 94 O2 Delivery Room Air Room Air Room Air 07/20/18 07/20/18 07/20/18 07/20/18 01:20 03:31 07:00 07:17 Temp 97.8 97.5 97.8 97.5 Pulse 68 72 Resp 18 16 B/P (MAP) 109/58 (75) 127/65 (85) Pulse Ox 94 93 95 93 O2 Delivery Room Air Room Air Room Air Room Air 07/20/18 07/20/18 07/20/18 07:57 11:00 11:17 Temp 97.7 97.7 Pulse 67 Resp 16 B/P (MAP) 105/54 (71) Pulse Ox 95 94 O2 Delivery Room Air Room Air Room Air Intake and Output 07/19/18 07/19/18 07/20/18 14:59 22:59 06:59 Intake Total 200 ml Balance 200 ml SERAFIN BARRAGAN MD Jul 20, 2018 13:50
--- NOTE | 2018-07-20 14:49 | NUR ---
DECLAN following pt. Per pt request, DECLAN met with pt again about dc plan. Spoke with pt and son, Av regarding PT/OT recommendation. Pt now wants to see if insurance will approve SNU this time after discussing with her children. [facility] DECLAN phoned and faxed referral to [facility]. Pt admission and acceptance pending. DECLAN will continue to follow.
[2018-07-20] MEDS ORDERED: AMIO200T4 PO (15:23)
[2018-07-20] MEDS ORDERED: AMIODARONE HCL 200 MG TABLET. PO ONE (15:30)
[2018-07-20] MEDS: ASPIRIN ENTERIC COATED 325 MG TABLET.DR. PO SCH (15:37)
[2018-07-20] MEDS: ATORVASTATIN CALCIUM 20 MG TABLET PO SCH (15:38)
[2018-07-20] MEDS: CETIRIZINE HCL 10 MG TABLET. PO SCH (15:38)
[2018-07-20] MEDS: METOPROLOL SUCC 24HR ER 50 MG TAB.ER.24H. PO SCH ×2 (15:38→20:24)
[2018-07-20] MEDS: amLODIPine BESYLATE 10 MG TABLET PO SCH (15:39)
[2018-07-20] MEDS ORDERED: CALCIUM CARBONATE 500 MG TAB.CHEW PO PRN (16:00)
[2018-07-20] MEDS ORDERED: POTASSIUM CHLORIDE 20 MEQ TABLET.ER. PO ONE (17:15)
--- NOTE | 2018-07-20 17:38 | PDOC2 ---
NEUROLOGY CONSULT Date of Admission Date of Admission DATE: 07/20/18 TIME: 17:25 Reason for Consult Reason for Consult: Generalized weakness. UTI. AFib, Hx COPD. Fall. Hx of LA. 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 Obesity. RECOMMENDATIONS/PLAN: Continue ASA 325 mg daily. Continue Lipitor HS. Treat medical diseases. Lab: see orders. 12-lead EKG. OT/PT. HISTORY OF THE PRESENT ILLNESS: This is an 87-y-old female who presented to the ER of [facility] with complaints of generalized weakness this time stating feeling weak in the entire body. 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 No focalized sensory or motor deficits. PAST MEDICAL HISTORY Past Medical History Cardiovascular: AFIB, HTN, LA Pulmonary: COPD CENTRAL NERVOUS SYSTEM: CVA ENT: No pertinent hx Renal/: No pertinent hx Endocrine: Hypothyroidism Dermatology: No pertinent hx PAST SURGICAL HISTORY Appendectomy, Cholecystectomy, Tonsillectomy FAMILY HISTORY Family History: Hypertension SOCIAL HISTORY Social History Smoke: No ALCOHOL: none Drugs: None Lives: with Family ALLERGIES Coded Allergies: Penicillins (Verified Allergy, Intermediate, 11/02/17) MEDICATIONS: Refer to [facility] REVIEW OF SYSTEMS: Constitutional: Obesity. Head: No traumatic brain or head injury. Skin: No edema, or rash. Ear: No infection. Eyes: No vision loss or color blindness. Nose: No bleeding or purulent discharges. Hearing: hearing decrease. Neck: No injury. Breast: No history of cancer, masses,or discharges. Cardiac: LA, CAD, HTN, HLD. Pulmonary: COPD. GI: No GI ulcer, GI bleeding. Urinary/genital: UTI. Endocrinologic: Obesity. Skeletomuscular: No muscular atrophy, deformity. Neurological: see HP. Psychiatric: Denies drug use/abuse. Otherwise, not [id number] review of systems. PHYSICAL EXAMINATION: General appearance is in subacute distress. HEENT: Normocephalic and nontraumatic. Eyes, nose, ears, and throat are unremarkable. Neck is supple. No lymphadenopathy. No crepitus. Cardiovascular: S1, S2, regular rate and rhythm. Pulmonary: Clear to auscultation bilaterally. Abdomen: Bowel sounds are positive. Abdomen is soft, nontender, and nondistended. Extremities: No rash, lesions, or edema. No restriction of range of motion NEUROLOGICAL EXAMINATION: Awake. Oriented to time, place and person. PERRL. EOMI. CN: no focal findings. Muscle tone: within normal. Muscle strength: 4+ DTR: 2- Plantar reflex: Flexor response bilaterally Gait: not examined in chair. Sensory exam: no abnormal findings. No acute cerebellar signs elicited. F-T-N test fine. Current Medications Current Medications Current Medications Albuterol/ Ipratropium (Duoneb) 3 ml RTQID NEB Last administered on 07/20/18 15:22; Start 07/20/18 at 08:00 Albuterol/ Ipratropium (Duoneb) 3 ml 1X ONCE NEB Last administered on 01:19; Start 07/20/18 at 01:15; Stop 07/20/18 at 01:16; Status DC Amlodipine Besylate (Norvasc) 10 mg DAILY PO Last administered on 07/20/18 15: 39; Start 07/20/18 at 09:00 Aspirin (Ecotrin) 325 mg DAILYWBKFT PO Last administered on 07/20/18 15:37; Start 07/20/18 at 08:00 Atorvastatin Calcium (Lipitor) 20 mg DAILY08 PO Last administered on 07/20/18 15:38; Start 07/20/18 at 08:00 Cetirizine HCl (ZyrTEC) 10 mg DAILY PO Last administered on 07/20/18at 15:38; Start 07/20/18 at 09:00 Dabigatran (Pradaxa) 75 mg DAILY PO ; Start 07/20/18 at 09:00; Stop 07/20/18 at 15:28; Status DC Furosemide (Lasix) 20 mg DAILY PO ; Start 07/20/18 at 09:00; Status Cancel Levothyroxine Sodium (Synthroid) 100 mcg DAILY06 PO ; Start 07/20/18 at 06:00 Metoprolol Succinate (Toprol Xl) 50 mg BID PO Last administered on 07/20/18 15 :38; Start 07/20/18 at 09:00 Oseltamivir Phosphate (Tamiflu) 30 mg BID PO ; Start 07/20/18 at 09:00; Stop 07/25/18 at 08:59; Status Cancel Prednisone (Prednisone) 20 mg DAILY PO ; Start 07/20/18 at 09:00; Stop 07/20/18 at 15:28; Status DC Amiodarone HCl (Cordarone) 400 mg 1X ONCE PO Last administered on 07/20/18at 15 :38; Start 07/20/18 at 15:30; Stop 07/20/18 at 15:31; Status DC Amiodarone HCl (Cordarone) 200 mg DAILY PO ; Start 07/21/18 at 09:00 Calcium Carbonate/ Glycine (Tums) 1,000 mg PRN AFTMEALHC PRN PO INDIGESTION Last administered on 07/20/18at 16:01; Start 07/20/18 at 16:00 Potassium Chloride (Klor-Con) 20 meq 1X ONCE PO ; Start 07/20/18 at 17:15; Stop 07/20/18 at 17:18; Status DC Potassium Chloride (Klor-Con) 20 meq DAILYWBKFT PO ; Start 07/21/18 at 08:00 Active Scripts Active Flyp Nebulizer (Nebulizer) 1 Each Each Each QIDPRN PRN PRN Cough/SOB 4 times daily for COPD/Influenza Duoneb 0.5-3(2.5) Mg/3 Ml (Albuterol/Ipratropium) 3 Ml Ampul.neb 3 Ml NEB RTQID 30 Days Toprol Xl (Metoprolol Succinate) 50 Mg Tab.er.24h 50 Mg PO BID 30 Days Amlodipine Besylate 10 Mg Tablet 10 Mg PO DAILY 30 Days Aspirin Ec (Aspirin) 325 Mg Tablet.dr 1 Tab PO DAILY Cetirizine Hcl 10 Mg Tablet 10 Mg PO DAILY MDD 1 Reported Amiodarone Hcl 200 Mg Tablet 1 Tab PO DAILY Lipitor (Atorvastatin Calcium) 20 Mg Tablet 20 Mg PO DAILY08 7 Days Synthroid (Levothyroxine Sodium) 75 Mcg Tablet 100 Mcg PO DAILY06 7 Days Allergies Allergies: Allergies Coded Allergies Type Severity Reaction Last Updated Verified Penicillins Allergy Intermediate 11/02/17 Yes ROS Review of System The patient denies any associated fevers, chills, headache, ear pain, rhinorrhea , sore throat, stiff neck, productive cough, chest pain, shortness of breath, back or flank pain, abdominal pain, nausea, vomiting, diarrhea, constipation, dysuria, rash, numbness, weakness, tingling, incontinence, difficulty ambulating, or diaphoresis. Physical Exam Physical Exam General: Well developed, well nourished, no acute distress, well appearing HEENT: Pupils equally round and reactive to light, EOMI, no discharge, normal conjunctiva Neck: Supple, no nuchal rigidity, no JVD, trachea midline, no tenderness Cardiac: RRR, no murmurs, no gallops, no rubs Chest/Lungs: CTAB, no wheeze, no rhonchi, no crackles Abdomen: soft, non-distended, no guarding, no peritoneal signs, non-tender Back: No tenderness Extremities: no edema, pulses intact, non-tender,capillary refill <3 sec bilateral upper and lower extremities, Neuro: Alert and oriented x 4, no focal deficits, normal speech Vitals Vitals: Vital Signs Date Time Temp Pulse Resp B/P (MAP) Pulse Ox O2 Delivery O2 Flow Rate FiO2 07/20/18 15:39 72 108/50 07/20/18 15:22 95 Room Air 07/20/18 14:43 97.5 16 97.5 Labs Labs Laboratory Tests Test 07/19/18 15:37 07/19/18 18:52 07/19/18 19:25 07/20/18 11:55 White Blood Count 9.3 x10^3/uL (4.0-11.0) Red Blood Count 4.05 x10^6/uL (3.50-5.40) Hemoglobin 12.7 g/dL (12.0-15.5) Hematocrit 38.7 % (36.0-47.0) Mean Corpuscular Volume 95 fL (79-100) Mean Corpuscular Hemoglobin 31 pg (25-35) Mean Corpuscular Hemoglobin Concent 33 g/dL (31-37) Red Cell Distribution Width 15.1 % (11.5-14.5) Platelet Count 356 x10^3/uL (140-400) Neutrophils (%) (Auto) 72 % (31-73) Lymphocytes (%) (Auto) 20 % (24-48) Monocytes (%) (Auto) 7 % (0-9) Eosinophils (%) (Auto) 2 % (0-3) Basophils (%) (Auto) 0 % (0-3) Neutrophils # (Auto) 6.6 x10^3uL (1.8-7.7) Lymphocytes # (Auto) 1.8 x10^3/uL (1.0-4.8) Monocytes # (Auto) 0.6 x10^3/uL (0.0-1.1) Eosinophils # (Auto) 0.1 x10^3/uL (0.0-0.7) Basophils # (Auto) 0.0 x10^3/uL (0.0-0.2) Prothrombin Time 14.7 SEC (11.7-14.0) Prothromb Time International Ratio 1.2 (0.8-1.1) Sodium Level 143 mmol/L (136-145) Potassium Level 3.4 mmol/L (3.5-5.1) Chloride Level 106 mmol/L (98-107) Carbon Dioxide Level 25 mmol/L (21-32) Anion Gap 12 (6-14) Blood Urea Nitrogen 26 mg/dL (7-20) Creatinine 1.1 mg/dL (0.6-1.0) Estimated GFR (Cockcroft-Gault) 46.8 BUN/Creatinine Ratio 24 (6-20) Glucose Level 125 mg/dL (70-99) Calcium Level 9.5 mg/dL (8.5-10.1) Magnesium Level 2.3 mg/dL (1.8-2.4) Total Bilirubin 0.4 mg/dL (0.2-1.0) Aspartate Amino Transf (AST/SGOT) 19 U/L (15-37) Alanine Aminotransferase (ALT/SGPT) 26 U/L (14-59) Alkaline Phosphatase 76 U/L (46-116) Troponin I Quantitative 0.024 ng/mL (0.000-0.055) 0.031 ng/mL (0.000-0.055) 0.029 ng/mL (0.000-0.055) Total Protein 6.3 g/dL (6.4-8.2) Albumin 2.6 g/dL (3.4-5.0) Albumin/Globulin Ratio 0.7 (1.0-1.7) Urine Collection Type Void Urine Color Yellow Urine Clarity Clear Urine pH 6.0 Urine Specific [place] 1.020 Urine Protein Negative mg/dL (NEG-TRACE) Urine Glucose (UA) Negative mg/dL (NEG) Urine Ketones (Stick) Negative mg/dL (NEG) Urine Blood Negative (NEG) Urine Nitrite Negative (NEG) Urine Bilirubin Negative (NEG) Urine Urobilinogen Dipstick 1.0 mg/dL (0.2 mg/dL) Urine Leukocyte Esterase Moderate (NEG) Urine RBC Occ /HPF (0-2) Urine WBC 11-20 /HPF (0-4) Urine Squamous Epithelial Cells Many /LPF Urine Bacteria Many /HPF (0-FEW) Urine Mucus Marked /LPF Laboratory Tests Test 07/19/18 18:52 07/19/18 19:25 07/20/18 11:55 Urine Collection Type Void Urine Color Yellow Urine Clarity Clear Urine pH 6.0 Urine Specific [place] 1.020 Urine Protein Negative mg/dL (NEG-TRACE) Urine Glucose (UA) Negative mg/dL (NEG) Urine Ketones (Stick) Negative mg/dL (NEG) Urine Blood Negative (NEG) Urine Nitrite Negative (NEG) Urine Bilirubin Negative (NEG) Urine Urobilinogen Dipstick 1.0 mg/dL (0.2 mg/dL) Urine Leukocyte Esterase Moderate (NEG) Urine RBC Occ /HPF (0-2) Urine WBC 11-20 /HPF (0-4) Urine Squamous Epithelial Cells Many /LPF Urine Bacteria Many /HPF (0-FEW) Urine Mucus Marked /LPF Troponin I Quantitative 0.031 ng/mL (0.000-0.055) 0.029 ng/mL (0.000-0.055) PAXTON RIZO MD Jul 20, 2018 17:38
--- NOTE | 2018-07-20 18:07 | EKG ---
[facility] [address] [place] [address] Test Date: 2018-07-20 Test Time: 17:55:01 Pat Name: Emily GUERRERO Department: Room: [facility] Gender: F [employer]er: KELLI : 1930 Requested By: PAXTON RIZO Order Number: [id number] Reading MD: Red Gregory Measurements Intervals [place] Rate: 76 P: 124 [place]: 170 QRS: -156 QRSD: 80 T: 119 QT: 426 QTc: 484 Interpretive Statements SINUS RHYTHM T ABNORMALITY IN ANTERIOR LEADS LATERAL LEADS ABNORMAL ECG Electronically Signed On 07-28-2018 10:49:56 [employer]ING [employer] by Red Gregory
[2018-07-21 03:35] VITALS: BP 120/63
[2018-07-21] MEDS: IPRATRPIUM/ALBUTEROL 0.5/2.5MG 3 ML NEBU. NEB SCH ×4 (05:57→20:00)
[2018-07-21] MEDS: LEVOTHYROXINE 100 MCG TABLET PO SCH (06:00)
[2018-07-21 07:15] VITALS: BP 111/54
[2018-07-21] MEDS ORDERED: IOHEXOL 350 MG/ML 100 ML VIAL. IV ONE (07:30)
[2018-07-21] MEDS ORDERED: CONTRAST GIVEN. MC PRN (07:45)
[2018-07-21] MEDS: ATORVASTATIN CALCIUM 20 MG TABLET PO SCH (08:00)
[2018-07-21] MEDS: POTASSIUM CHLORIDE 20 MEQ TABLET.ER. PO SCH (08:00)
[2018-07-21] MEDS: ASPIRIN ENTERIC COATED 325 MG TABLET.DR. PO SCH (08:00)
[2018-07-21] MEDS: CETIRIZINE HCL 10 MG TABLET. PO SCH (09:00)
[2018-07-21] MEDS: METOPROLOL SUCC 24HR ER 50 MG TAB.ER.24H. PO SCH ×2 (09:00→20:46)
[2018-07-21] MEDS: amLODIPine BESYLATE 10 MG TABLET PO SCH (09:00)
[2018-07-21] MEDS: AMIODARONE HCL 200 MG TABLET. PO SCH (09:00)
--- NOTE | 2018-07-21 09:03 | PDOC ---
PROGRESS NOTES History of Present Illness History of Present Illness Assessment/Plan dizziness recent Influenza A ASSOCIATED Syncope. chronic encephalopathy. mild cognitive impairment w. 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 weakness and debility a-fib rate controlled high fall risk Cerebral atrophy. Pulmonary emboli in the left upper lobe, also probable small focus superior left lower lobe. NEW BY CTA 07/21 plan With history of PAF, we will rule out SSS/tachy-gelacio with outpatient event monitor CT chest to rule out PE POS 07/21 tele neurology consult PT/OT/ST cardiology consult may need snf bed IV HEPARIN PROTOCOL 07/21 STILL VERY WEAK WITH AMBULATION Vitals Vitals Vital Signs Date Time Temp Pulse Resp B/P (MAP) Pulse Ox O2 Delivery O2 Flow Rate FiO2 07/21/18 07:48 Room Air 07/21/18 07:15 98.5 74 18 111/54 (73) 95 98.5 Physical Exam General: Alert, Oriented X3, Cooperative, No acute distress, mild distress Heart: Regular rate, Other (irrr) Lungs: Clear, Other Abdomen: Normal bowel sounds, Soft Extremities: No clubbing, No cyanosis, No edema Skin: No rashes, No significant lesion Labs LABS Chest CTA History: Syncope, right bundle branch block Technique: After bolus of intravenous contrast, CT imaging was performed of the chest. Multiplanar reconstruction images to include MIP reconstruction images are submitted. Exposure: One or more of the following individualized dose reduction techniques were utilized for this examination: 1. Automated exposure control 2. Adjustment of the mA and/or kV according to patient size 3. Use of iterative reconstruction technique. Comparison: Noncontrast chest CT November 03, 2017 Findings: [There is some motion degradation.] There are some pulmonary emboli of the left upper lobe branches, also likely small focus superior left lower lobe. There are trace pleural effusions bilaterally. There is no pneumothorax. There is emphysema. There is again fibrotic change near right lung apex. Thoracic aortic caliber is within normal limits without intraluminal flap. There is small likely cyst of the visualized left kidney. There has been cholecystectomy. There are calcified subcarinal nodes. There is mild lower lobe bronchial wall thickening bilaterally. There is multilevel thoracic spondylosis. There is mild coronary calcification. There is thoracic levoscoliosis. Impression: 1. There are some pulmonary emboli in the left upper lobe, also probable small focus superior left lower lobe. There are trace pleural effusions bilaterally. 2. There is mild lower lobe bronchial wall thickening bilaterally, could be associated with bronchitis. FOR INTERNAL CODING PURPOSES Critical result: Findings discussed with patient's nurse Varsha at 07/21/2018 11:20 AM, to inform doctor of findings. Laboratory Tests Test 07/20/18 11:55 Troponin I Quantitative 0.029 ng/mL (0.000-0.055) Vitamin B12 Level 713 pg/mL (247-911) Assessment and Plan Assessmemt and Plan Problems Medical Problems: (1) Syncopal episodes Status: Acute Comment Review of Relevant I have reviewed the following items erica (where applicable) has been applied. Labs Laboratory Tests Test 07/19/18 15:37 07/19/18 18:52 07/19/18 19:25 07/20/18 11:55 White Blood Count 9.3 x10^3/uL (4.0-11.0) Red Blood Count 4.05 x10^6/uL (3.50-5.40) Hemoglobin 12.7 g/dL (12.0-15.5) Hematocrit 38.7 % (36.0-47.0) Mean Corpuscular Volume 95 fL (79-100) Mean Corpuscular Hemoglobin 31 pg (25-35) Mean Corpuscular Hemoglobin Concent 33 g/dL (31-37) Red Cell Distribution Width 15.1 % (11.5-14.5) Platelet Count 356 x10^3/uL (140-400) Neutrophils (%) (Auto) 72 % (31-73) Lymphocytes (%) (Auto) 20 % (24-48) Monocytes (%) (Auto) 7 % (0-9) Eosinophils (%) (Auto) 2 % (0-3) Basophils (%) (Auto) 0 % (0-3) Neutrophils # (Auto) 6.6 x10^3uL (1.8-7.7) Lymphocytes # (Auto) 1.8 x10^3/uL (1.0-4.8) Monocytes # (Auto) 0.6 x10^3/uL (0.0-1.1) Eosinophils # (Auto) 0.1 x10^3/uL (0.0-0.7) Basophils # (Auto) 0.0 x10^3/uL (0.0-0.2) Prothrombin Time 14.7 SEC (11.7-14.0) Prothromb Time International Ratio 1.2 (0.8-1.1) Sodium Level 143 mmol/L (136-145) Potassium Level 3.4 mmol/L (3.5-5.1) Chloride Level 106 mmol/L (98-107) Carbon Dioxide Level 25 mmol/L (21-32) Anion Gap 12 (6-14) Blood Urea Nitrogen 26 mg/dL (7-20) Creatinine 1.1 mg/dL (0.6-1.0) Estimated GFR (Cockcroft-Gault) 46.8 BUN/Creatinine Ratio 24 (6-20) Glucose Level 125 mg/dL (70-99) Calcium Level 9.5 mg/dL (8.5-10.1) Magnesium Level 2.3 mg/dL (1.8-2.4) Total Bilirubin 0.4 mg/dL (0.2-1.0) Aspartate Amino Transf (AST/SGOT) 19 U/L (15-37) Alanine Aminotransferase (ALT/SGPT) 26 U/L (14-59) Alkaline Phosphatase 76 U/L (46-116) Troponin I Quantitative 0.024 ng/mL (0.000-0.055) 0.031 ng/mL (0.000-0.055) 0.029 ng/mL (0.000-0.055) Total Protein 6.3 g/dL (6.4-8.2) Albumin 2.6 g/dL (3.4-5.0) Albumin/Globulin Ratio 0.7 (1.0-1.7) Urine Collection Type Void Urine Color Yellow Urine Clarity Clear Urine pH 6.0 Urine Specific [place] 1.020 Urine Protein Negative mg/dL (NEG-TRACE) Urine Glucose (UA) Negative mg/dL (NEG) Urine Ketones (Stick) Negative mg/dL (NEG) Urine Blood Negative (NEG) Urine Nitrite Negative (NEG) Urine Bilirubin Negative (NEG) Urine Urobilinogen Dipstick 1.0 mg/dL (0.2 mg/dL) Urine Leukocyte Esterase Moderate (NEG) Urine RBC Occ /HPF (0-2) Urine WBC 11-20 /HPF (0-4) Urine Squamous Epithelial Cells Many /LPF Urine Bacteria Many /HPF (0-FEW) Urine Mucus Marked /LPF Vitamin B12 Level 713 pg/mL (247-911) Laboratory Tests Test 07/20/18 11:55 Troponin I Quantitative 0.029 ng/mL (0.000-0.055) Vitamin B12 Level 713 pg/mL (247-911) Medications Current Medications Albuterol/ Ipratropium (Duoneb) 3 ml RTQID NEB Last administered on 07/21/18at 05:57; Start 07/20/18 at 08:00 Albuterol/ Ipratropium (Duoneb) 3 ml 1X ONCE NEB Last administered on at 01:19; Start 07/20/18 at 01:15; Stop 07/20/18 at 01:16; Status DC Amlodipine Besylate (Norvasc) 10 mg DAILY PO Last administered on 07/20/18 15: 39; Start 07/20/18 at 09:00 Aspirin (Ecotrin) 325 mg DAILYWBKFT PO Last administered on 07/20/18at 15:37; Start 07/20/18 at 08:00 Atorvastatin Calcium (Lipitor) 20 mg DAILY08 PO Last administered on 07/20/18 15:38; Start 07/20/18 at 08:00 Cetirizine HCl (ZyrTEC) 10 mg DAILY PO Last administered on 07/20/18at 15:38; Start 07/20/18 at 09:00 Dabigatran (Pradaxa) 75 mg DAILY PO ; Start 07/20/18 at 09:00; Stop 07/20/18 at 15:28; Status DC Furosemide (Lasix) 20 mg DAILY PO ; Start 07/20/18 at 09:00; Status Cancel Levothyroxine Sodium (Synthroid) 100 mcg DAILY06 PO Last administered on at 06:00; Start 07/20/18 at 06:00 Metoprolol Succinate (Toprol Xl) 50 mg BID PO Last administered on 07/20/18at 20 :24; Start 07/20/18 at 09:00 Oseltamivir Phosphate (Tamiflu) 30 mg BID PO ; Start 07/20/18 at 09:00; Stop 07/25/18 at 08:59; Status Cancel Prednisone (Prednisone) 20 mg DAILY PO ; Start 07/20/18 at 09:00; Stop 07/20/18 at 15:28; Status DC Amiodarone HCl (Cordarone) 400 mg 1X ONCE PO Last administered on 07/20/18at 15 :38; Start 07/20/18 at 15:30; Stop 07/20/18 at 15:31; Status DC Amiodarone HCl (Cordarone) 200 mg DAILY PO ; Start 07/21/18 at 09:00 Calcium Carbonate/ Glycine (Tums) 1,000 mg PRN AFTMEALHC PRN PO INDIGESTION Last administered on 07/20/18at 16:01; Start 07/20/18 at 16:00 Potassium Chloride (Klor-Con) 20 meq 1X ONCE PO Last administered on at 18:13; Start 07/20/18 at 17:15; Stop 07/20/18 at 17:18; Status DC Potassium Chloride (Klor-Con) 20 meq DAILYWBKFT PO ; Start 07/21/18 at 08:00 Iohexol (Omnipaque 350 Mg/ml) 75 ml 1X ONCE IV ; Start 07/21/18 at 07:30; Stop 07/21/18 at 07:34; Status DC Info (CONTRAST GIVEN -- Rx MONITORING) 1 each PRN DAILY PRN MC SEE COMMENTS; Start 07/21/18 at 07:45; Stop 07/23/18 at 07:44 Active Scripts Active Flyp Nebulizer (Nebulizer) 1 Each Each Each MC QIDPRN PRN PRN Cough/SOB 4 times daily for COPD/Influenza Duoneb 0.5-3(2.5) Mg/3 Ml (Albuterol/Ipratropium) 3 Ml Ampul.neb 3 Ml NEB RTQID 30 Days Toprol Xl (Metoprolol Succinate) 50 Mg Tab.er.24h 50 Mg PO BID 30 Days Amlodipine Besylate 10 Mg Tablet 10 Mg PO DAILY 30 Days Aspirin Ec (Aspirin) 325 Mg Tablet.dr 1 Tab PO DAILY Cetirizine Hcl 10 Mg Tablet 10 Mg PO DAILY MDD 1 Reported Amiodarone Hcl 200 Mg Tablet 1 Tab PO DAILY Lipitor (Atorvastatin Calcium) 20 Mg Tablet 20 Mg PO DAILY08 7 Days Synthroid (Levothyroxine Sodium) 75 Mcg Tablet 100 Mcg PO DAILY06 7 Days Vitals/I & O Vital Sign - Last 24 Hours 07/20/18 07/20/18 07/20/18 07/20/18 11:00 11:17 12:30 12:35 Temp 97.7 97.7 Pulse 67 68 75 Resp 16 B/P (MAP) 105/54 (71) 115/56 (75) 124/67 (86) Pulse Ox 95 94 O2 Delivery Room Air Room Air 07/20/18 07/20/18 07/20/18 07/20/18 12:40 14:43 15:22 15:38 Temp 97.5 97.5 Pulse 78 72 72 Resp 16 B/P (MAP) 117/61 (79) 108/50 (69) 108/50 Pulse Ox 93 95 O2 Delivery Room Air Room Air 07/20/18 07/20/18 07/20/18 07/20/18 15:38 15:39 19:25 20:05 Temp 98.5 98.5 Pulse 72 72 71 Resp 16 B/P (MAP) 108/50 108/50 106/50 (68) Pulse Ox 93 O2 Delivery Room Air Room Air 07/20/18 07/20/18 07/20/18 07/21/18 20:24 20:34 23:30 03:35 Temp 98.3 98.3 98.3 98.3 Pulse 71 72 Resp 18 18 B/P (MAP) 106/50 117/55 (75) 120/63 (82) Pulse Ox 95 94 96 O2 Delivery Room Air Room Air Room Air 07/21/18 07/21/18 07/21/18 05:58 07:15 07:48 Temp 98.5 98.5 Pulse 74 Resp 18 B/P (MAP) 111/54 (73) Pulse Ox 96 95 O2 Delivery Room Air Room Air Room Air SERAFIN BARRAGAN MD Jul 21, 2018 09:03
--- NOTE | 2018-07-21 09:21 | NUR ---
DECLAN following pt. Pt has been accepted at [facility] pending insurance approval. Insurance auth for [facility] pending. Will continue to follow.
[2018-07-21 11:17] VITALS: BP 119/58
--- NOTE | 2018-07-21 11:23 | RAD ---
Chest CTA History: Syncope, right bundle branch block Technique: After bolus of intravenous contrast, CT imaging was performed of the chest. Multiplanar reconstruction images to include MIP reconstruction images are submitted. Exposure: One or more of the following individualized dose reduction techniques were utilized for this examination: 1. Automated exposure control 2. Adjustment of the mA and/or kV according to patient size 3. Use of iterative reconstruction technique. Comparison: Noncontrast chest CT November 03, 2017 Findings: [There is some motion degradation.] There are some pulmonary emboli of the left upper lobe branches, also likely small focus superior left lower lobe. There are trace pleural effusions bilaterally. There is no pneumothorax. There is emphysema. There is again fibrotic change near right lung apex. Thoracic aortic caliber is within normal limits without intraluminal flap. There is small likely cyst of the visualized left kidney. There has been cholecystectomy. There are calcified subcarinal nodes. There is mild lower lobe bronchial wall thickening bilaterally. There is multilevel thoracic spondylosis. There is mild coronary calcification. There is thoracic levoscoliosis. Impression: 1. There are some pulmonary emboli in the left upper lobe, also probable small focus superior left lower lobe. There are trace pleural effusions bilaterally. 2. There is mild lower lobe bronchial wall thickening bilaterally, could be associated with bronchitis. FOR INTERNAL CODING PURPOSES Critical result: Findings discussed with patient's nurse Varsha at 07/21/2018 11:20 AM, to inform doctor of findings. RESULT CODE: (C) Electronically signed by: Gavino Saldana MD (07/21/2018 11:21 AM) [id number]
[2018-07-21] MEDS ORDERED: HEPARIN 25,000UTS/500ML PREMIX 500 ML IV PRN (11:45)
[2018-07-21] MEDS ORDERED: HEPARIN for IV BOLUS 10,000 UNIT/10 ML VIAL. IV PRN ×2 (11:45)
--- NOTE | 2018-07-21 12:29 | RAD ---
EXAM: Bilateral lower extremity venous Doppler sonogram. HISTORY: PE. Pain and swelling. TECHNIQUE: [place] scale and color Doppler sonographic evaluation of the bilateral lower extremity veins with spectral waveform analysis was performed. FINDINGS: There is normal color flow, normal compressibility and there are normal spectral waveforms in the common femoral, superficial femoral, popliteal, posterior tibial and greater saphenous veins. IMPRESSION: No Doppler evidence of lower extremity deep venous thrombosis. Electronically signed by: Joann High MD (07/21/2018 12:27 PM) [place] [id number]
[2018-07-21 13:47] LABS: BASO # 0.1 x10^3/uL (0.0-0.2); BASO % 1 % (0-3); EOS # 0.2 x10^3/uL (0.0-0.7); EOS % 3 % (0-3); HEMATOCRIT 38.7 % (36.0-47.0); HEMOGLOBIN 12.7 g/dL (12.0-15.5); LYMPH # 1.1 x10^3/uL (1.0-4.8); LYMPH % 13 % (24-48); MEAN CORPUSCULAR HEMOGLOBIN 31 pg (25-35); MEAN CORPUSCULAR HGB CONC 33 g/dL (31-37); MEAN CORPUSCULAR VOLUME 93 fL (79-100); MONO # 0.6 x10^3/uL (0.0-1.1); MONO % 7 % (0-9); NEUT # 6.7 x10^3uL (1.8-7.7); NEUT % 77 % (31-73); PLATELET COUNT 310 x10^3/uL (140-400); RED BLOOD COUNT 4.15 x10^6/uL (3.50-5.40); RED CELL DISTRIBUTION WIDTH 14.8 % (11.5-14.5); WHITE BLOOD COUNT 8.7 x10^3/uL (4.0-11.0)
[2018-07-21 14:26] LABS: CALCIUM 9.2 mg/dL (8.5-10.1); CREATININE 1.1 mg/dL (0.6-1.0); GFR 46.8; POTASSIUM 3.8 mmol/L (3.5-5.1)
[2018-07-21 15:08] VITALS: BP 116/51
--- NOTE | 2018-07-21 17:01 | PDOC ---
KG ROLDAN CLASSIFICATION ANALYST 07/21/18 1701: CARDIO Progress Notes Date and Time Date of Service 07/21/2018 Time of Evaluation 1600 Subjective Subjective: No Chest Pain, No shortness of breath, No Palpitations, Other ( belching) Vitals Vitals Vital Signs Date Time Temp Pulse Resp B/P (MAP) Pulse Ox O2 Delivery O2 Flow Rate FiO2 07/21/18 15:12 97 Room Air 07/21/18 15:08 98.2 70 20 116/51 (72) 98.2 Weight Weight [ ] Input and Output Intake and Output Intake and Output 07/21/18 07:00 # Voids 4 Laboratory Labs Laboratory Tests Test 07/21/18 13:40 White Blood Count 8.7 x10^3/uL (4.0-11.0) Red Blood Count 4.15 x10^6/uL (3.50-5.40) Hemoglobin 12.7 g/dL (12.0-15.5) Hematocrit 38.7 % (36.0-47.0) Mean Corpuscular Volume 93 fL (79-100) Mean Corpuscular Hemoglobin 31 pg (25-35) Mean Corpuscular Hemoglobin Concent 33 g/dL (31-37) Red Cell Distribution Width 14.8 % (11.5-14.5) Platelet Count 310 x10^3/uL (140-400) Neutrophils (%) (Auto) 77 % (31-73) Lymphocytes (%) (Auto) 13 % (24-48) Monocytes (%) (Auto) 7 % (0-9) Eosinophils (%) (Auto) 3 % (0-3) Basophils (%) (Auto) 1 % (0-3) Neutrophils # (Auto) 6.7 x10^3uL (1.8-7.7) Lymphocytes # (Auto) 1.1 x10^3/uL (1.0-4.8) Monocytes # (Auto) 0.6 x10^3/uL (0.0-1.1) Eosinophils # (Auto) 0.2 x10^3/uL (0.0-0.7) Basophils # (Auto) 0.1 x10^3/uL (0.0-0.2) Sodium Level 141 mmol/L (136-145) Potassium Level 3.8 mmol/L (3.5-5.1) Chloride Level 107 mmol/L (98-107) Carbon Dioxide Level 27 mmol/L (21-32) Anion Gap 7 (6-14) Blood Urea Nitrogen 23 mg/dL (7-20) Creatinine 1.1 mg/dL (0.6-1.0) Estimated GFR (Cockcroft-Gault) 46.8 Glucose Level 167 mg/dL (70-99) Calcium Level 9.2 mg/dL (8.5-10.1) Physical Exam HEENT: Neck Supple W Full Motion LUNGS: Clear to Auscultation Heart: S1S2, RRR (SR) Abdomen: Soft N/T Extremities: No Calf Tenderness Neurology: alert, oriented, follow commands Assessment Assessment 1. Syncope: potentially as a result of PE. RBBB new, vector change due to PE confirmed with CTA 2. Known dizziness/vertigo with high risk for falls: due to her past cerebellar infarctions. 3. PAFIB: maintaining SR on Amiodarone. EF and WM nml 4. Hypertension; controlled 5. Hypothyroidism; TSH on goal. replacement therapy 6. H/o CVA; CT head negative for acute changes 7. .Recent flu 8. UTI 9. PE Recommendations 1. Continue Amiodarone/metoprolol for rate/rhythm control 2. May need IVC filter. poor mobility due to #2. venous doppler LE. Heparin per VTE protocol. Consult pulmonary. 3. ASA/statin for stroke prophylaxis. 4. Supportive care. AIDEN BIRD MD 07/21/182055: CARDIO Progress Notes Assessment Assessment Patient seen and examined. Agree with FORGING PRESS OPERATOR's assessment and plan. CTA confirmed PE - pulm team consulted. Agree with IVCF Maintaining sinus rhythm with amiodarone We will consider outpatient event monitor KG ROLDAN APRN Jul 21, 2018 17:01 AIDEN BIRD MD Jul 21, 2018 20:56
--- NOTE | 2018-07-21 17:24 | PDOC ---
PULMONARY PROGRESS NOTES Vitals Vital Signs Date Time Temp Pulse Resp B/P (MAP) Pulse Ox O2 Delivery O2 Flow Rate FiO2 07/21/18 15:12 97 Room Air 07/21/18 15:08 98.2 70 20 116/51 (72) 98.2 Lungs: Clear, Other Cardiovascular: S1, S2 Labs Laboratory Tests Test 07/19/18 18:52 07/19/18 19:25 07/20/18 11:55 07/21/18 13:40 Urine Collection Type Void Urine Color Yellow Urine Clarity Clear Urine pH 6.0 Urine Specific Holder[place] 1.020 Urine Protein Negative mg/dL (NEG-TRACE) Urine Glucose (UA) Negative mg/dL (NEG) Urine Ketones (Stick) Negative mg/dL (NEG) Urine Blood Negative (NEG) Urine Nitrite Negative (NEG) Urine Bilirubin Negative (NEG) Urine Urobilinogen Dipstick 1.0 mg/dL (0.2 mg/dL) Urine Leukocyte Esterase Moderate (NEG) Urine RBC Occ /HPF (0-2) Urine WBC 11-20 /HPF (0-4) Urine Squamous Epithelial Cells Many /LPF Urine Bacteria Many /HPF (0-FEW) Urine Mucus Marked /LPF Troponin I Quantitative 0.031 ng/mL (0.000-0.055) 0.029 ng/mL (0.000-0.055) Vitamin B12 Level 713 pg/mL (247-911) White Blood Count 8.7 x10^3/uL (4.0-11.0) Red Blood Count 4.15 x10^6/uL (3.50-5.40) Hemoglobin 12.7 g/dL (12.0-15.5) Hematocrit 38.7 % (36.0-47.0) Mean Corpuscular Volume 93 fL (79-100) Mean Corpuscular Hemoglobin 31 pg (25-35) Mean Corpuscular Hemoglobin Concent 33 g/dL (31-37) Red Cell Distribution Width 14.8 % (11.5-14.5) Platelet Count 310 x10^3/uL (140-400) Neutrophils (%) (Auto) 77 % (31-73) Lymphocytes (%) (Auto) 13 % (24-48) Monocytes (%) (Auto) 7 % (0-9) Eosinophils (%) (Auto) 3 % (0-3) Basophils (%) (Auto) 1 % (0-3) Neutrophils # (Auto) 6.7 x10^3uL (1.8-7.7) Lymphocytes # (Auto) 1.1 x10^3/uL (1.0-4.8) Monocytes # (Auto) 0.6 x10^3/uL (0.0-1.1) Eosinophils # (Auto) 0.2 x10^3/uL (0.0-0.7) Basophils # (Auto) 0.1 x10^3/uL (0.0-0.2) Sodium Level 141 mmol/L (136-145) Potassium Level 3.8 mmol/L (3.5-5.1) Chloride Level 107 mmol/L (98-107) Carbon Dioxide Level 27 mmol/L (21-32) Anion Gap 7 (6-14) Blood Urea Nitrogen 23 mg/dL (7-20) Creatinine 1.1 mg/dL (0.6-1.0) Estimated GFR (Cockcroft-Gault) 46.8 Glucose Level 167 mg/dL (70-99) Calcium Level 9.2 mg/dL (8.5-10.1) Laboratory Tests Test 07/21/18 13:40 White Blood Count 8.7 x10^3/uL (4.0-11.0) Red Blood Count 4.15 x10^6/uL (3.50-5.40) Hemoglobin 12.7 g/dL (12.0-15.5) Hematocrit 38.7 % (36.0-47.0) Mean Corpuscular Volume 93 fL (79-100) Mean Corpuscular Hemoglobin 31 pg (25-35) Mean Corpuscular Hemoglobin Concent 33 g/dL (31-37) Red Cell Distribution Width 14.8 % (11.5-14.5) Platelet Count 310 x10^3/uL (140-400) Neutrophils (%) (Auto) 77 % (31-73) Lymphocytes (%) (Auto) 13 % (24-48) Monocytes (%) (Auto) 7 % (0-9) Eosinophils (%) (Auto) 3 % (0-3) Basophils (%) (Auto) 1 % (0-3) Neutrophils # (Auto) 6.7 x10^3uL (1.8-7.7) Lymphocytes # (Auto) 1.1 x10^3/uL (1.0-4.8) Monocytes # (Auto) 0.6 x10^3/uL (0.0-1.1) Eosinophils # (Auto) 0.2 x10^3/uL (0.0-0.7) Basophils # (Auto) 0.1 x10^3/uL (0.0-0.2) Sodium Level 141 mmol/L (136-145) Potassium Level 3.8 mmol/L (3.5-5.1) Chloride Level 107 mmol/L (98-107) Carbon Dioxide Level 27 mmol/L (21-32) Anion Gap 7 (6-14) Blood Urea Nitrogen 23 mg/dL (7-20) Creatinine 1.1 mg/dL (0.6-1.0) Estimated GFR (Cockcroft-Gault) 46.8 Glucose Level 167 mg/dL (70-99) Calcium Level 9.2 mg/dL (8.5-10.1) Medications Active Scripts Medications Dose Route/Sig Max Daily Dose Days Date Category Dose Instructions Amiodarone Hcl 200 Mg Tablet 1 Tab PO DAILY 07/20/18 Reported Flyp Nebulizer (Nebulizer) 1 Each Each Each MC QIDPRN PRN 07/15/18 Rx PRN Cough/SOB 4 times daily for COPD/Influenza Duoneb 0.5-3(2.5) Mg/3 Ml (Albuterol/Ipratropium) 3 Ml Ampul.neb 3 Ml NEB RTQID 30 07/15/18 Rx Toprol Xl (Metoprolol Succinate) 50 Mg Tab.er.24h 50 Mg PO BID 30 07/15/18 Rx Amlodipine Besylate 10 Mg Tablet 10 Mg PO DAILY 30 07/15/18 Rx Aspirin Ec (Aspirin) 325 Mg Tablet.dr 1 Tab PO DAILY 07/08/18 Rx Cetirizine Hcl 10 Mg Tablet 10 Mg PO DAILY MDD 1 07/08/18 Rx Lipitor (Atorvastatin Calcium) 20 Mg Tablet 20 Mg PO DAILY08 7 06/25/13 Reported Synthroid (Levothyroxine Sodium) 75 Mcg Tablet 100 Mcg PO DAILY06 7 06/25/13 Reported Impression . FULL CONSULT DICTATED INCIDENTAL FINDING OF SMALL CLOT IN LEFT BRANCH OF PA DOUBT THAT THIS IS RESULTING IN PT SYMPTOMS I DO NOT RECOMMEND TREATMENT FOLLOW UP IN OFFICE IN [address] ANGIO VENOUS DOPPLER NEGATIVE THANKS JULIANN LOPEZ MD Jul 21, 2018 17:24
--- NOTE | 2018-07-21 18:20 | PDOC ---
PROGRESS NOTES Assessment Assessment Generalized weakness. UTI. PE? HTN. HLD. AFib, Hx COPD. Fall. Hx of KS. Hypothyroidism. 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 Obesity. RECOMMENDATIONS/PLAN: Continue ASA 325 mg daily. Continue Lipitor HS. She is treated with Eliquis. Treat medical diseases and UTI per floor team. OT/PT. HISTORY OF THE PRESENT ILLNESS: This is an 87-y-old female who presented to the ER of [facility] with complaints of generalized weakness this time stating feeling weak in the entire body. 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 No focalized sensory or motor deficits. PAST MEDICAL HISTORY Past Medical History Cardiovascular: AFIB, HTN, [place] Pulmonary: COPD CENTRAL NERVOUS SYSTEM: CVA ENT: No pertinent hx Renal/: No pertinent hx Endocrine: Hypothyroidism Dermatology: No pertinent hx PAST SURGICAL HISTORY Appendectomy, Cholecystectomy, Tonsillectomy FAMILY HISTORY Family History: Hypertension SOCIAL HISTORY Social History Smoke: No ALCOHOL: none Drugs: None Lives: with Family ALLERGIES Coded Allergies: Penicillins (Verified Allergy, Intermediate, 11/02/17) MEDICATIONS: Refer to [facility] REVIEW OF SYSTEMS: Constitutional: Obesity. Head: No traumatic brain or head injury. Skin: No edema, or rash. Ear: No infection. Eyes: No vision loss or color blindness. Nose: No bleeding or purulent discharges. Hearing: hearing decrease. Neck: No injury. Breast: No history of cancer, masses,or discharges. Cardiac: KS, CAD, HTN, HLD. Pulmonary: COPD. GI: No GI ulcer, GI bleeding. Urinary/genital: UTI. Endocrinologic: Obesity. Skeletomuscular: No muscular atrophy, deformity. Neurological: see HP. Psychiatric: Denies drug use/abuse. Otherwise, not [id number] review of systems. PHYSICAL EXAMINATION: General appearance is in subacute distress. HEENT: Normocephalic and nontraumatic. Eyes, nose, ears, and throat are unremarkable. Neck is supple. No lymphadenopathy. No crepitus. Cardiovascular: S1, S2, regular rate and rhythm. Pulmonary: Clear to auscultation bilaterally. Abdomen: Bowel sounds are positive. Abdomen is soft, nontender, and nondistended. Extremities: No rash, lesions, or edema. No restriction of range of motion NEUROLOGICAL EXAMINATION: Awake. Oriented to time, place and person. PERRL. EOMI. CN: no focal findings. Muscle tone: within normal. Muscle strength: 4+ DTR: 2- Plantar reflex: Flexor response bilaterally Gait: not examined in bed. Sensory exam: no abnormal findings. No acute cerebellar signs elicited. F-T-N test fine. Objective Objective Vital Signs Date Time Temp Pulse Resp B/P (MAP) Pulse Ox O2 Delivery O2 Flow Rate FiO2 07/21/18 15:12 97 Room Air 07/21/18 15:08 98.2 70 20 116/51 (72) 98.2 Intake and Output 07/21/18 07:00 # Voids 4 Vitals Signs Vitals VS - Last 72 Hours, by Label Date Time Temp Pulse Resp B/P (MAP) Pulse Ox O2 Delivery O2 Flow Rate FiO2 07/21/18 15:12 97 Room Air 07/21/18 15:08 98.2 70 20 116/51 (72) 97 Room Air 98.2 07/21/18 11:17 98.1 72 20 119/58 (78) 96 Room Air 98.1 07/21/18 11:04 Room Air 07/21/18 09:00 74 111/54 07/21/18 09:00 74 111/54 07/21/18 09:00 74 111/54 07/21/18 07:48 Room Air 07/21/18 07:15 98.5 74 18 111/54 (73) 95 Room Air 98.5 07/21/18 05:58 96 Room Air 07/21/18 03:35 98.3 18 120/63 (82) 96 Room Air 98.3 07/20/18 23:30 98.3 72 18 117/55 (75) 94 Room Air 98.3 07/20/18 20:34 95 Room Air 07/20/18 20:24 71 106/50 07/20/18 20:05 Room Air 07/20/18 19:25 98.5 71 16 106/50 (68) 93 Room Air 98.5 07/20/18 15:39 72 108/50 07/20/18 15:38 72 108/50 07/20/18 15:38 72 108/50 07/20/18 15:22 95 Room Air 07/20/18 14:43 97.5 72 16 108/50 (69) 93 Room Air 97.5 07/20/18 12:40 78 117/61 (79) 07/20/18 12:35 75 124/67 (86) 07/20/18 12:30 68 115/56 (75) 07/20/18 11:17 94 Room Air 07/20/18 11:00 97.7 67 16 105/54 (71) 95 Room Air 97.7 07/20/18 07:57 Room Air 07/20/18 07:17 93 Room Air 07/20/18 07:00 97.5 72 16 127/65 (85) 95 Room Air 97.5 Laboratory Laboratory Laboratory Tests Test 07/21/18 13:40 White Blood Count 8.7 x10^3/uL (4.0-11.0) Red Blood Count 4.15 x10^6/uL (3.50-5.40) Hemoglobin 12.7 g/dL (12.0-15.5) Hematocrit 38.7 % (36.0-47.0) Mean Corpuscular Volume 93 fL (79-100) Mean Corpuscular Hemoglobin 31 pg (25-35) Mean Corpuscular Hemoglobin Concent 33 g/dL (31-37) Red Cell Distribution Width 14.8 % (11.5-14.5) Platelet Count 310 x10^3/uL (140-400) Neutrophils (%) (Auto) 77 % (31-73) Lymphocytes (%) (Auto) 13 % (24-48) Monocytes (%) (Auto) 7 % (0-9) Eosinophils (%) (Auto) 3 % (0-3) Basophils (%) (Auto) 1 % (0-3) Neutrophils # (Auto) 6.7 x10^3uL (1.8-7.7) Lymphocytes # (Auto) 1.1 x10^3/uL (1.0-4.8) Monocytes # (Auto) 0.6 x10^3/uL (0.0-1.1) Eosinophils # (Auto) 0.2 x10^3/uL (0.0-0.7) Basophils # (Auto) 0.1 x10^3/uL (0.0-0.2) Sodium Level 141 mmol/L (136-145) Potassium Level 3.8 mmol/L (3.5-5.1) Chloride Level 107 mmol/L (98-107) Carbon Dioxide Level 27 mmol/L (21-32) Anion Gap 7 (6-14) Blood Urea Nitrogen 23 mg/dL (7-20) Creatinine 1.1 mg/dL (0.6-1.0) Estimated GFR (Cockcroft-Gault) 46.8 Glucose Level 167 mg/dL (70-99) Calcium Level 9.2 mg/dL (8.5-10.1) Medication Medications Current Medications Amiodarone HCl (Cordarone) 200 mg DAILY PO Last administered on 07/21/18at 09:00 ; Start 07/21/18 at 09:00 Apixaban (Eliquis) 5 mg BID PO ; Start 07/21/18 at 21:00 Apixaban (Eliquis) 10 mg BID PO ; Start 07/21/18 at 21:00; Stop 07/21/18 at 21: 00; Status DC Heparin Sodium (Porcine) (Heparin Sodium) 1,150 unit PRN Q6HRS PRN IV FOR UFH LEVEL 0.2 - 0.29; Start 07/21/18 at 11:45; Stop 07/21/18 at 17:08; Status DC Heparin Sodium (Porcine) (Heparin Sodium) 2,300 unit PRN Q6HRS PRN IV FOR UFH LEVEL LESS THAN 0.2; Start 07/21/18 at 11:45; Stop 07/21/18 at 17:08; Status DC Heparin Sodium/ Dextrose 500 ml @ 0 mls/hr CONT PRN IV SEE I/O RECORD Last administered on 07/21/18at 12:51; Start 07/21/18 at 11:45; Stop 07/21/18 at 17:08 ; Status DC Info (CONTRAST GIVEN -- Rx MONITORING) 1 each PRN DAILY PRN MC SEE COMMENTS; Start 07/21/18 at 07:45; Stop 07/23/18 at 07:44 Iohexol (Omnipaque 350 Mg/ml) 75 ml 1X ONCE IV ; Start 07/21/18 at 07:30; Stop 07/21/18 at 07:34; Status DC Potassium Chloride (Klor-Con) 20 meq DAILYWBKFT PO Last administered on at 08:00; Start 07/21/18 at 08:00 Comment Review of Relevant I have reviewed the following items erica (where applicable) has been applied. PAXTON RIZO MD Jul 21, 2018 18:20
[2018-07-21 19:49] VITALS: BP 105/58
[2018-07-21] MEDS: APIXABAN 5 MG TABLET. PO SCH (20:45)
[2018-07-21] MEDS ORDERED: APIXABAN 5 MG TABLET. PO SCH (21:00)
[2018-07-21 23:55] VITALS: BP 119/61
[2018-07-22 03:45] VITALS: BP 119/59
--- NOTE | 2018-07-22 05:38 | CONS ---
DATE OF CONSULTATION: 07/21/2018 ATTENDING PHYSICIAN: Dr. Wall. REASON FOR CONSULTATION: The patient seen in pulmonary consultation at the request of the Cardiology Service for possible PE. HISTORY OF PRESENT ILLNESS: The patient is an 87-year-old that represented with multiple symptoms and near syncopal episode. She complains of feeling terrible weak, had some dizziness. If she turns her head from side to side, becomes dizzy. She was also weaker and fell. Part of her workup included a cardiology consultation. Cardiology Service ordered a CT angiogram. I reviewed the CT, there is a very small incidental pulmonary clot in the left side. I was asked to see her in consultation. Since then, she has been on heparin. I discussed the case with Stephania Breaux. The patient was started on heparin earlier today. I questioned the patient about acute onset of shortness of breath associated with pleurisy, she has not experienced anything close to it. She also stated that she was never short of breath. She denies any previous history of lung disorders, PE or DVT. PAST MEDICAL HISTORY: Chronic AFib, hypertension, previous myocardial infarction, COPD, previous CVA. MEDICATIONS: At home, she was on amiodarone. At one point, she was on antiplatelet, which she is currently not taking. PAST SURGICAL HISTORY: Status post appendectomy, cholecystectomy, tonsillectomy. SOCIAL HISTORY: She is currently not smoking. Lives with her . REVIEW OF SYSTEMS: As indicated above, otherwise, a 10-point system was reviewed and negative. FAMILY HISTORY: No family history of lung disorders. CURRENT MEDICATIONS: List was reviewed. PHYSICAL EXAMINATION: VITAL SIGNS: The patient was in no respiratory distress, currently on room air saturation 95%. HEENT: Eyes, the sclerae were nonicteric. NECK: Jugular venous distention was not elevated. No lymphadenopathy. CHEST: Full expansion. LUNGS: Adequate airway flow with no wheezes. CARDIOVASCULAR: Regular rate and rhythm with S1, S2, no S3. ABDOMEN: Soft, nontender, nondistended. EXTREMITIES: No clubbing, cyanosis, some edema. NEUROLOGIC: The patient was awake, alert, following commands. A detailed neuro exam was not performed. LABORATORY DATA: Reviewed. White count was normal. Hemoglobin and hematocrit were noted. Electrolytes were noted. Troponin was not elevated. Echocardiogram revealed PA pressure of 35. Ejection fraction 55-60%. IMPRESSION: 1. Abnormal CT angiogram revealing small incidental clot on the right side, doubt that this is contributing to the patient's current symptoms. 2. Syncopal episode. 3. Paroxysmal atrial fibrillation. 4. Hypertension. 5. Hypothyroidism. 6. History of cerebrovascular accident. 7. Recent flu. PLAN: 1. After reviewing the CT angiogram and speaking with the patient, I doubt that the patient's symptoms are related to this incidental finding. I do not recommend treatment. The treatment for the small incidental clot in the left small pulmonary artery outweighs the benefit. 2. Recommend discharge home whenever Cardiology clears the patient. Have the patient follow up in my office in 4 weeks. At that time, I will repeat the CT angiogram. 3. Noted that venous Dopplers were negative. 4. The above was discussed with the and son who were at the bedside. I do appreciate the privilege in sharing in this patient's care. JULIANN LOPEZ MD DR: JACQUELINE/nola JOB#: [id number] / [id number]
[2018-07-22] MEDS: LEVOTHYROXINE 100 MCG TABLET PO SCH (05:42)
[2018-07-22 06:02] LABS: BASO % 0 % (0-3); EOS # 0.3 x10^3/uL (0.0-0.7); EOS % 4 % (0-3); HEMATOCRIT 37.3 % (36.0-47.0); HEMOGLOBIN 12.3 g/dL (12.0-15.5); LYMPH # 1.5 x10^3/uL (1.0-4.8); LYMPH % 19 % (24-48); MEAN CORPUSCULAR HEMOGLOBIN 31 pg (25-35); MEAN CORPUSCULAR HGB CONC 33 g/dL (31-37); MEAN CORPUSCULAR VOLUME 93 fL (79-100); MONO # 0.6 x10^3/uL (0.0-1.1); MONO % 8 % (0-9); NEUT # 5.5 x10^3uL (1.8-7.7); NEUT % 69 % (31-73); PLATELET COUNT 281 x10^3/uL (140-400); RED BLOOD COUNT 4.03 x10^6/uL (3.50-5.40); RED CELL DISTRIBUTION WIDTH 14.9 % (11.5-14.5)
[2018-07-22 06:24] LABS: CALCIUM 9.2 mg/dL (8.5-10.1); CREATININE 1.1 mg/dL (0.6-1.0); GFR 46.8; POTASSIUM 3.9 mmol/L (3.5-5.1)
[2018-07-22] MEDS: IPRATRPIUM/ALBUTEROL 0.5/2.5MG 3 ML NEBU. NEB SCH ×3 (07:12→15:22)
[2018-07-22 07:40] VITALS: BP 113/62
[2018-07-22] MEDS: CETIRIZINE HCL 10 MG TABLET. PO SCH (08:27)
[2018-07-22] MEDS: ASPIRIN ENTERIC COATED 325 MG TABLET.DR. PO SCH (08:27)
[2018-07-22] MEDS: ATORVASTATIN CALCIUM 20 MG TABLET PO SCH (08:27)
[2018-07-22] MEDS: AMIODARONE HCL 200 MG TABLET. PO SCH (08:27)
[2018-07-22] MEDS: APIXABAN 5 MG TABLET. PO SCH (08:27)
[2018-07-22] MEDS: amLODIPine BESYLATE 10 MG TABLET PO SCH (08:27)
[2018-07-22] MEDS: POTASSIUM CHLORIDE 20 MEQ TABLET.ER. PO SCH (08:27)
[2018-07-22] MEDS: METOPROLOL SUCC 24HR ER 50 MG TAB.ER.24H. PO SCH (08:28)
--- NOTE | 2018-07-22 09:09 | PDOC ---
PROGRESS NOTES History of Present Illness History of Present Illness Assessment/Plan dizziness recent Influenza A ASSOCIATED Syncope. chronic encephalopathy. mild cognitive impairment w. 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 weakness and debility a-fib rate controlled high fall risk Cerebral atrophy. Pulmonary emboli in the left upper lobe, also probable small focus superior left lower lobe. NEW BY CTA 07/21 plan With history of PAF, we will rule out SSS/tachy-gelacio with outpatient event monitor CT chest to rule out PE POS 07/21 tele neurology consult PT/OT/ST cardiology consult snf bed IV HEPARIN PROTOCOL D/C eliquis 5mg po bid x 7 days 07/21 STILL VERY WEAK WITH AMBULATION 07/22 AGREES TO SNF PLACEMENT, LOW ENDURANCE FOR EXERCISE Vitals Vitals Vital Signs Date Time Temp Pulse Resp B/P (MAP) Pulse Ox O2 Delivery O2 Flow Rate FiO2 07/22/18 08:28 71 113/62 07/22/18 08:00 Room Air 07/22/18 07:40 98.0 16 94 98.0 Physical Exam General: Alert, Oriented X3, Cooperative, No acute distress, mild distress Heart: Regular rate, Other (irrr) Lungs: Clear, Other Abdomen: Normal bowel sounds, Soft Extremities: No clubbing, No cyanosis, No edema Skin: No rashes, No significant lesion Labs LABS Laboratory Tests Test 07/21/18 13:40 07/21/18 18:45 07/22/18 05:15 White Blood Count 8.7 x10^3/uL (4.0-11.0) 8.0 x10^3/uL (4.0-11.0) Red Blood Count 4.15 x10^6/uL (3.50-5.40) 4.03 x10^6/uL (3.50-5.40) Hemoglobin 12.7 g/dL (12.0-15.5) 12.3 g/dL (12.0-15.5) Hematocrit 38.7 % (36.0-47.0) 37.3 % (36.0-47.0) Mean Corpuscular Volume 93 fL (79-100) 93 fL (79-100) Mean Corpuscular Hemoglobin 31 pg (25-35) 31 pg (25-35) Mean Corpuscular Hemoglobin Concent 33 g/dL (31-37) 33 g/dL (31-37) Red Cell Distribution Width 14.8 % (11.5-14.5) 14.9 % (11.5-14.5) Platelet Count 310 x10^3/uL (140-400) 281 x10^3/uL (140-400) Neutrophils (%) (Auto) 77 % (31-73) 69 % (31-73) Lymphocytes (%) (Auto) 13 % (24-48) 19 % (24-48) Monocytes (%) (Auto) 7 % (0-9) 8 % (0-9) Eosinophils (%) (Auto) 3 % (0-3) 4 % (0-3) Basophils (%) (Auto) 1 % (0-3) 0 % (0-3) Neutrophils # (Auto) 6.7 x10^3uL (1.8-7.7) 5.5 x10^3uL (1.8-7.7) Lymphocytes # (Auto) 1.1 x10^3/uL (1.0-4.8) 1.5 x10^3/uL (1.0-4.8) Monocytes # (Auto) 0.6 x10^3/uL (0.0-1.1) 0.6 x10^3/uL (0.0-1.1) Eosinophils # (Auto) 0.2 x10^3/uL (0.0-0.7) 0.3 x10^3/uL (0.0-0.7) Basophils # (Auto) 0.1 x10^3/uL (0.0-0.2) 0.0 x10^3/uL (0.0-0.2) Sodium Level 141 mmol/L (136-145) 144 mmol/L (136-145) Potassium Level 3.8 mmol/L (3.5-5.1) 3.9 mmol/L (3.5-5.1) Chloride Level 107 mmol/L (98-107) 108 mmol/L (98-107) Carbon Dioxide Level 27 mmol/L (21-32) 27 mmol/L (21-32) Anion Gap 7 (6-14) 9 (6-14) Blood Urea Nitrogen 23 mg/dL (7-20) 15 mg/dL (7-20) Creatinine 1.1 mg/dL (0.6-1.0) 1.1 mg/dL (0.6-1.0) Estimated GFR (Cockcroft-Gault) 46.8 46.8 Glucose Level 167 mg/dL (70-99) 106 mg/dL (70-99) Calcium Level 9.2 mg/dL (8.5-10.1) 9.2 mg/dL (8.5-10.1) Heparin Anti-Xa Act, Unfractionated 0.15 IU/mL (0.30-0.70) Creatine Kinase 25 U/L (26-192) Assessment and Plan Assessmemt and Plan Problems Medical Problems: (1) Syncopal episodes Status: Acute Comment Review of Relevant I have reviewed the following items erica (where applicable) has been applied. Labs Laboratory Tests Test 07/20/18 11:55 07/21/18 13:40 07/21/18 18:45 07/22/18 05:15 Troponin I Quantitative 0.029 ng/mL (0.000-0.055) Vitamin B12 Level 713 pg/mL (247-911) White Blood Count 8.7 x10^3/uL (4.0-11.0) 8.0 x10^3/uL (4.0-11.0) Red Blood Count 4.15 x10^6/uL (3.50-5.40) 4.03 x10^6/uL (3.50-5.40) Hemoglobin 12.7 g/dL (12.0-15.5) 12.3 g/dL (12.0-15.5) Hematocrit 38.7 % (36.0-47.0) 37.3 % (36.0-47.0) Mean Corpuscular Volume 93 fL (79-100) 93 fL (79-100) Mean Corpuscular Hemoglobin 31 pg (25-35) 31 pg (25-35) Mean Corpuscular Hemoglobin Concent 33 g/dL (31-37) 33 g/dL (31-37) Red Cell Distribution Width 14.8 % (11.5-14.5) 14.9 % (11.5-14.5) Platelet Count 310 x10^3/uL (140-400) 281 x10^3/uL (140-400) Neutrophils (%) (Auto) 77 % (31-73) 69 % (31-73) Lymphocytes (%) (Auto) 13 % (24-48) 19 % (24-48) Monocytes (%) (Auto) 7 % (0-9) 8 % (0-9) Eosinophils (%) (Auto) 3 % (0-3) 4 % (0-3) Basophils (%) (Auto) 1 % (0-3) 0 % (0-3) Neutrophils # (Auto) 6.7 x10^3uL (1.8-7.7) 5.5 x10^3uL (1.8-7.7) Lymphocytes # (Auto) 1.1 x10^3/uL (1.0-4.8) 1.5 x10^3/uL (1.0-4.8) Monocytes # (Auto) 0.6 x10^3/uL (0.0-1.1) 0.6 x10^3/uL (0.0-1.1) Eosinophils # (Auto) 0.2 x10^3/uL (0.0-0.7) 0.3 x10^3/uL (0.0-0.7) Basophils # (Auto) 0.1 x10^3/uL (0.0-0.2) 0.0 x10^3/uL (0.0-0.2) Sodium Level 141 mmol/L (136-145) 144 mmol/L (136-145) Potassium Level 3.8 mmol/L (3.5-5.1) 3.9 mmol/L (3.5-5.1) Chloride Level 107 mmol/L (98-107) 108 mmol/L (98-107) Carbon Dioxide Level 27 mmol/L (21-32) 27 mmol/L (21-32) Anion Gap 7 (6-14) 9 (6-14) Blood Urea Nitrogen 23 mg/dL (7-20) 15 mg/dL (7-20) Creatinine 1.1 mg/dL (0.6-1.0) 1.1 mg/dL (0.6-1.0) Estimated GFR (Cockcroft-Gault) 46.8 46.8 Glucose Level 167 mg/dL (70-99) 106 mg/dL (70-99) Calcium Level 9.2 mg/dL (8.5-10.1) 9.2 mg/dL (8.5-10.1) Heparin Anti-Xa Act, Unfractionated 0.15 IU/mL (0.30-0.70) Creatine Kinase 25 U/L (26-192) Laboratory Tests Test 07/21/18 13:40 07/21/18 18:45 07/22/18 05:15 White Blood Count 8.7 x10^3/uL (4.0-11.0) 8.0 x10^3/uL (4.0-11.0) Red Blood Count 4.15 x10^6/uL (3.50-5.40) 4.03 x10^6/uL (3.50-5.40) Hemoglobin 12.7 g/dL (12.0-15.5) 12.3 g/dL (12.0-15.5) Hematocrit 38.7 % (36.0-47.0) 37.3 % (36.0-47.0) Mean Corpuscular Volume 93 fL (79-100) 93 fL (79-100) Mean Corpuscular Hemoglobin 31 pg (25-35) 31 pg (25-35) Mean Corpuscular Hemoglobin Concent 33 g/dL (31-37) 33 g/dL (31-37) Red Cell Distribution Width 14.8 % (11.5-14.5) 14.9 % (11.5-14.5) Platelet Count 310 x10^3/uL (140-400) 281 x10^3/uL (140-400) Neutrophils (%) (Auto) 77 % (31-73) 69 % (31-73) Lymphocytes (%) (Auto) 13 % (24-48) 19 % (24-48) Monocytes (%) (Auto) 7 % (0-9) 8 % (0-9) Eosinophils (%) (Auto) 3 % (0-3) 4 % (0-3) Basophils (%) (Auto) 1 % (0-3) 0 % (0-3) Neutrophils # (Auto) 6.7 x10^3uL (1.8-7.7) 5.5 x10^3uL (1.8-7.7) Lymphocytes # (Auto) 1.1 x10^3/uL (1.0-4.8) 1.5 x10^3/uL (1.0-4.8) Monocytes # (Auto) 0.6 x10^3/uL (0.0-1.1) 0.6 x10^3/uL (0.0-1.1) Eosinophils # (Auto) 0.2 x10^3/uL (0.0-0.7) 0.3 x10^3/uL (0.0-0.7) Basophils # (Auto) 0.1 x10^3/uL (0.0-0.2) 0.0 x10^3/uL (0.0-0.2) Sodium Level 141 mmol/L (136-145) 144 mmol/L (136-145) Potassium Level 3.8 mmol/L (3.5-5.1) 3.9 mmol/L (3.5-5.1) Chloride Level 107 mmol/L (98-107) 108 mmol/L (98-107) Carbon Dioxide Level 27 mmol/L (21-32) 27 mmol/L (21-32) Anion Gap 7 (6-14) 9 (6-14) Blood Urea Nitrogen 23 mg/dL (7-20) 15 mg/dL (7-20) Creatinine 1.1 mg/dL (0.6-1.0) 1.1 mg/dL (0.6-1.0) Estimated GFR (Cockcroft-Gault) 46.8 46.8 Glucose Level 167 mg/dL (70-99) 106 mg/dL (70-99) Calcium Level 9.2 mg/dL (8.5-10.1) 9.2 mg/dL (8.5-10.1) Heparin Anti-Xa Act, Unfractionated 0.15 IU/mL (0.30-0.70) Creatine Kinase 25 U/L (26-192) Microbiology 07/19/18 Urine Culture - Final, Complete 07/19/18 Urine Culture Result 1 (TATY) - Final, Complete Medications Current Medications Albuterol/ Ipratropium (Duoneb) 3 ml RTQID NEB Last administered on 07/22/18at 07:12; Start 07/20/18 at 08:00 Albuterol/ Ipratropium (Duoneb) 3 ml 1X ONCE NEB Last administered on at 01:19; Start 07/20/18 at 01:15; Stop 07/20/18 at 01:16; Status DC Amlodipine Besylate (Norvasc) 10 mg DAILY PO Last administered on 07/22/18at 08: 27; Start 07/20/18 at 09:00 Aspirin (Ecotrin) 325 mg DAILYWBKFT PO Last administered on 07/22/18at 08:27; Start 07/20/18 at 08:00 Atorvastatin Calcium (Lipitor) 20 mg DAILY08 PO Last administered on 07/22/18at 08:27; Start 07/20/18 at 08:00 Cetirizine HCl (ZyrTEC) 10 mg DAILY PO Last administered on 07/22/18at 08:27; Start 07/20/18 at 09:00 Dabigatran (Pradaxa) 75 mg DAILY PO ; Start 07/20/18 at 09:00; Stop 07/20/18 at 15:28; Status DC Furosemide (Lasix) 20 mg DAILY PO ; Start 07/20/18 at 09:00; Status Cancel Levothyroxine Sodium (Synthroid) 100 mcg DAILY06 PO Last administered on at 05:42; Start 07/20/18 at 06:00 Metoprolol Succinate (Toprol Xl) 50 mg BID PO Last administered on 07/22/18at 08 :28; Start 07/20/18 at 09:00 Oseltamivir Phosphate (Tamiflu) 30 mg BID PO ; Start 07/20/18 at 09:00; Stop 07/25/18 at 08:59; Status Cancel Prednisone (Prednisone) 20 mg DAILY PO ; Start 07/20/18 at 09:00; Stop 07/20/18 at 15:28; Status DC Amiodarone HCl (Cordarone) 400 mg 1X ONCE PO Last administered on 07/20/18at 15 :38; Start 07/20/18 at 15:30; Stop 07/20/18 at 15:31; Status DC Amiodarone HCl (Cordarone) 200 mg DAILY PO Last administered on 07/22/18at 08:27 ; Start 07/21/18 at 09:00 Calcium Carbonate/ Glycine (Tums) 1,000 mg PRN AFTMEALHC PRN PO INDIGESTION Last administered on 07/20/18at 16:01; Start 07/20/18 at 16:00 Potassium Chloride (Klor-Con) 20 meq 1X ONCE PO Last administered on at 18:13; Start 07/20/18 at 17:15; Stop 07/20/18 at 17:18; Status DC Potassium Chloride (Klor-Con) 20 meq DAILYWBKFT PO Last administered on at 08:27; Start 07/21/18 at 08:00 Iohexol (Omnipaque 350 Mg/ml) 75 ml 1X ONCE IV ; Start 07/21/18 at 07:30; Stop 07/21/18 at 07:34; Status DC Info (CONTRAST GIVEN -- Rx MONITORING) 1 each PRN DAILY PRN MC SEE COMMENTS; Start 07/21/18 at 07:45; Stop 07/23/18 at 07:44 Heparin Sodium/ Dextrose 500 ml @ 0 mls/hr CONT PRN IV SEE I/O RECORD Last administered on 07/21/18at 12:51; Start 07/21/18 at 11:45; Stop 07/21/18 at 17:08 ; Status DC Heparin Sodium (Porcine) (Heparin Sodium) 2,300 unit PRN Q6HRS PRN IV FOR UFH LEVEL LESS THAN 0.2; Start 07/21/18 at 11:45; Stop 07/21/18 at 17:08; Status DC Heparin Sodium (Porcine) (Heparin Sodium) 1,150 unit PRN Q6HRS PRN IV FOR UFH LEVEL 0.2 - 0.29; Start 07/21/18 at 11:45; Stop 07/21/18 at 17:08; Status DC Apixaban (Eliquis) 10 mg BID PO ; Start 07/21/18 at 21:00; Stop 07/21/18 at 21: 00; Status DC Apixaban (Eliquis) 5 mg BID PO Last administered on 07/22/18at 08:27; Start at 21:00 Active Scripts Active Flyp Nebulizer (Nebulizer) 1 Each Each Each MC QIDPRN PRN PRN Cough/SOB 4 times daily for COPD/Influenza Duoneb 0.5-3(2.5) Mg/3 Ml (Albuterol/Ipratropium) 3 Ml Ampul.neb 3 Ml NEB RTQID 30 Days Toprol Xl (Metoprolol Succinate) 50 Mg Tab.er.24h 50 Mg PO BID 30 Days Amlodipine Besylate 10 Mg Tablet 10 Mg PO DAILY 30 Days Aspirin Ec (Aspirin) 325 Mg Tablet.dr 1 Tab PO DAILY Cetirizine Hcl 10 Mg Tablet 10 Mg PO DAILY MDD 1 Reported Amiodarone Hcl 200 Mg Tablet 1 Tab PO DAILY Lipitor (Atorvastatin Calcium) 20 Mg Tablet 20 Mg PO DAILY08 7 Days Synthroid (Levothyroxine Sodium) 75 Mcg Tablet 100 Mcg PO DAILY06 7 Days Vitals/I & O Vital Sign - Last 24 Hours 07/21/18 07/21/18 07/21/18 07/21/18 11:04 11:17 15:08 15:12 Temp 98.1 98.2 98.1 98.2 Pulse 72 70 Resp 20 20 B/P (MAP) 119/58 (78) 116/51 (72) Pulse Ox 96 97 97 O2 Delivery Room Air Room Air Room Air Room Air 07/21/18 07/21/18 07/21/18 07/21/18 19:49 20:00 20:01 20:46 Temp 98.7 98.7 Pulse 77 Resp 16 B/P (MAP) 105/58 (74) 105/58 Pulse Ox 92 94 O2 Delivery Room Air Room Air Room Air 07/21/18 07/22/18 07/22/18 07/22/18 23:55 03:45 07:13 07:40 Temp 98.3 98.6 98.0 98.3 98.6 98.0 Pulse 73 67 71 Resp 16 16 16 B/P (MAP) 119/61 (80) 119/59 (79) 113/62 (79) Pulse Ox 92 90 92 94 O2 Delivery Room Air Room Air Room Air Room Air 07/22/18 07/22/18 07/22/18 07/22/18 08:00 08:27 08:27 08:28 Pulse 71 71 71 B/P (MAP) 113/62 113/62 113/62 O2 Delivery Room Air Intake and Output 07/21/18 07/21/18 07/22/18 15:00 23:00 07:00 Intake Total 240 ml 240 ml 240 ml Output Total 700 ml Balance 240 ml 240 ml -460 ml SERAFIN BARRAGAN MD Jul 22, 2018 09:09
--- NOTE | 2018-07-22 09:52 | PDOC ---
PULMONARY PROGRESS NOTES Subjective PT NOT MORE SOA Vitals Vital Signs Date Time Temp Pulse Resp B/P (MAP) Pulse Ox O2 Delivery O2 Flow Rate FiO2 07/22/18 08:28 71 113/62 07/22/18 08:00 Room Air 07/22/18 07:40 98.0 16 94 98.0 ROS: No Nausea, No Chest Pain, No Abdominal Pain, No Increase Cough Lungs: Clear Cardiovascular: S1, S2 Abdomen: Soft Neuro Exam: Alert Extremities: No Edema Skin: Warm Labs Laboratory Tests Test 07/20/18 11:55 07/21/18 13:40 07/21/18 18:45 07/22/18 05:15 Troponin I Quantitative 0.029 ng/mL (0.000-0.055) Vitamin B12 Level 713 pg/mL (247-911) White Blood Count 8.7 x10^3/uL (4.0-11.0) 8.0 x10^3/uL (4.0-11.0) Red Blood Count 4.15 x10^6/uL (3.50-5.40) 4.03 x10^6/uL (3.50-5.40) Hemoglobin 12.7 g/dL (12.0-15.5) 12.3 g/dL (12.0-15.5) Hematocrit 38.7 % (36.0-47.0) 37.3 % (36.0-47.0) Mean Corpuscular Volume 93 fL (79-100) 93 fL (79-100) Mean Corpuscular Hemoglobin 31 pg (25-35) 31 pg (25-35) Mean Corpuscular Hemoglobin Concent 33 g/dL (31-37) 33 g/dL (31-37) Red Cell Distribution Width 14.8 % (11.5-14.5) 14.9 % (11.5-14.5) Platelet Count 310 x10^3/uL (140-400) 281 x10^3/uL (140-400) Neutrophils (%) (Auto) 77 % (31-73) 69 % (31-73) Lymphocytes (%) (Auto) 13 % (24-48) 19 % (24-48) Monocytes (%) (Auto) 7 % (0-9) 8 % (0-9) Eosinophils (%) (Auto) 3 % (0-3) 4 % (0-3) Basophils (%) (Auto) 1 % (0-3) 0 % (0-3) Neutrophils # (Auto) 6.7 x10^3uL (1.8-7.7) 5.5 x10^3uL (1.8-7.7) Lymphocytes # (Auto) 1.1 x10^3/uL (1.0-4.8) 1.5 x10^3/uL (1.0-4.8) Monocytes # (Auto) 0.6 x10^3/uL (0.0-1.1) 0.6 x10^3/uL (0.0-1.1) Eosinophils # (Auto) 0.2 x10^3/uL (0.0-0.7) 0.3 x10^3/uL (0.0-0.7) Basophils # (Auto) 0.1 x10^3/uL (0.0-0.2) 0.0 x10^3/uL (0.0-0.2) Sodium Level 141 mmol/L (136-145) 144 mmol/L (136-145) Potassium Level 3.8 mmol/L (3.5-5.1) 3.9 mmol/L (3.5-5.1) Chloride Level 107 mmol/L (98-107) 108 mmol/L (98-107) Carbon Dioxide Level 27 mmol/L (21-32) 27 mmol/L (21-32) Anion Gap 7 (6-14) 9 (6-14) Blood Urea Nitrogen 23 mg/dL (7-20) 15 mg/dL (7-20) Creatinine 1.1 mg/dL (0.6-1.0) 1.1 mg/dL (0.6-1.0) Estimated GFR (Cockcroft-Gault) 46.8 46.8 Glucose Level 167 mg/dL (70-99) 106 mg/dL (70-99) Calcium Level 9.2 mg/dL (8.5-10.1) 9.2 mg/dL (8.5-10.1) Heparin Anti-Xa Act, Unfractionated 0.15 IU/mL (0.30-0.70) Creatine Kinase 25 U/L (26-192) Laboratory Tests Test 07/21/18 13:40 07/21/18 18:45 07/22/18 05:15 White Blood Count 8.7 x10^3/uL (4.0-11.0) 8.0 x10^3/uL (4.0-11.0) Red Blood Count 4.15 x10^6/uL (3.50-5.40) 4.03 x10^6/uL (3.50-5.40) Hemoglobin 12.7 g/dL (12.0-15.5) 12.3 g/dL (12.0-15.5) Hematocrit 38.7 % (36.0-47.0) 37.3 % (36.0-47.0) Mean Corpuscular Volume 93 fL (79-100) 93 fL (79-100) Mean Corpuscular Hemoglobin 31 pg (25-35) 31 pg (25-35) Mean Corpuscular Hemoglobin Concent 33 g/dL (31-37) 33 g/dL (31-37) Red Cell Distribution Width 14.8 % (11.5-14.5) 14.9 % (11.5-14.5) Platelet Count 310 x10^3/uL (140-400) 281 x10^3/uL (140-400) Neutrophils (%) (Auto) 77 % (31-73) 69 % (31-73) Lymphocytes (%) (Auto) 13 % (24-48) 19 % (24-48) Monocytes (%) (Auto) 7 % (0-9) 8 % (0-9) Eosinophils (%) (Auto) 3 % (0-3) 4 % (0-3) Basophils (%) (Auto) 1 % (0-3) 0 % (0-3) Neutrophils # (Auto) 6.7 x10^3uL (1.8-7.7) 5.5 x10^3uL (1.8-7.7) Lymphocytes # (Auto) 1.1 x10^3/uL (1.0-4.8) 1.5 x10^3/uL (1.0-4.8) Monocytes # (Auto) 0.6 x10^3/uL (0.0-1.1) 0.6 x10^3/uL (0.0-1.1) Eosinophils # (Auto) 0.2 x10^3/uL (0.0-0.7) 0.3 x10^3/uL (0.0-0.7) Basophils # (Auto) 0.1 x10^3/uL (0.0-0.2) 0.0 x10^3/uL (0.0-0.2) Sodium Level 141 mmol/L (136-145) 144 mmol/L (136-145) Potassium Level 3.8 mmol/L (3.5-5.1) 3.9 mmol/L (3.5-5.1) Chloride Level 107 mmol/L (98-107) 108 mmol/L (98-107) Carbon Dioxide Level 27 mmol/L (21-32) 27 mmol/L (21-32) Anion Gap 7 (6-14) 9 (6-14) Blood Urea Nitrogen 23 mg/dL (7-20) 15 mg/dL (7-20) Creatinine 1.1 mg/dL (0.6-1.0) 1.1 mg/dL (0.6-1.0) Estimated GFR (Cockcroft-Gault) 46.8 46.8 Glucose Level 167 mg/dL (70-99) 106 mg/dL (70-99) Calcium Level 9.2 mg/dL (8.5-10.1) 9.2 mg/dL (8.5-10.1) Heparin Anti-Xa Act, Unfractionated 0.15 IU/mL (0.30-0.70) Creatine Kinase 25 U/L (26-192) Medications Active Scripts Medications Dose Route/Sig Max Daily Dose Days Date Category Dose Instructions Amiodarone Hcl 200 Mg Tablet 1 Tab PO DAILY 07/20/18 Reported Flyp Nebulizer (Nebulizer) 1 Each Each Each MC QIDPRN PRN 07/15/18 Rx PRN Cough/SOB 4 times daily for COPD/Influenza Duoneb 0.5-3(2.5) Mg/3 Ml (Albuterol/Ipratropium) 3 Ml Ampul.neb 3 Ml NEB RTQID 30 07/15/18 Rx Toprol Xl (Metoprolol Succinate) 50 Mg Tab.er.24h 50 Mg PO BID 30 07/15/18 Rx Amlodipine Besylate 10 Mg Tablet 10 Mg PO DAILY 30 07/15/18 Rx Aspirin Ec (Aspirin) 325 Mg Tablet.dr 1 Tab PO DAILY 07/08/18 Rx Cetirizine Hcl 10 Mg Tablet 10 Mg PO DAILY MDD 1 07/08/18 Rx Lipitor (Atorvastatin Calcium) 20 Mg Tablet 20 Mg PO DAILY08 7 06/25/13 Reported Synthroid (Levothyroxine Sodium) 75 Mcg Tablet 100 Mcg PO DAILY06 7 06/25/13 Reported Impression . IMPRESSION: 1. Abnormal CT angiogram revealing small incidental clot on the right side, doubt that this is contributing to the patient's current symptoms. 2. Syncopal episode. 3. Paroxysmal atrial fibrillation. 4. Hypertension. 5. Hypothyroidism. 6. History of cerebrovascular accident. 7. Recent flu. Plan . OK TO TRANSFER TO REHAB HAVE PT FOLLOW UP WITH ME IN 6-8 WEEKS NO NEED FOR TREATMENT AT THIS TIME JULIANN LOPEZ MD Jul 22, 2018 09:52
[2018-07-22 10:52] VITALS: BP 102/52
[2018-07-22] MEDS ORDERED: ANTI-COAG MONITOR BY PHARMACY. MC PRN (12:00)
--- NOTE | 2018-07-22 14:03 | NUR ---
Per insurance approved half-way. [facility]. patient and family notified and agree to plans.
--- NOTE | 2018-07-22 14:37 | PDOC3 ---
Discharge Summary Date of Admission: Jul 19, 2018 Date of Discharge: Jul 22, 2018 Follow-Up: 1-2 days Admitting Diagnosis comment: discharge diagnosis dizziness recent Influenza A ASSOCIATED Syncope. chronic encephalopathy. mild cognitive impairment w. 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 weakness and debility a-fib rate controlled high fall risk Cerebral atrophy. Pulmonary emboli in the left upper lobe, acute small focus superior left lower lobe. NEW BY CTA 07/21 plan With history of PAF, we will rule out SSS/tachy-gelacio with outpatient event monitor CT chest PE POS 07/21 tele neurology following PT/OT/ST cardiology consult snf bed on d/c IV HEPARIN PROTOCOL D/C eliquis 5mg po bid x 7 days 07/21 STILL VERY WEAK WITH AMBULATION 07/22 AGREES TO SNF PLACEMENT, LOW ENDURANCE FOR EXERCISE Vitals Vitals Vital Signs Date Time Temp Pulse Resp B/P (MAP) Pulse Ox O2 Delivery O2 Flow Rate FiO2 07/22/18 08:28 71 113/62 07/22/18 08:00 Room Air 07/22/18 07:40 98.0 16 94 98.0 Physical Exam General: Alert, Oriented X3, Cooperative, No acute distress, mild distress Heart: Regular rate, Other (irrr) Lungs: Clear, Other Abdomen: Normal bowel sounds, Soft Extremities: No clubbing, No cyanosis, No edema Skin: No rashes, No significant lesion FINAL DIAGNOSIS Problems Medical Problems: (1) Syncopal episodes Status: Acute Brief Hospital Course Ms. Green is a 87 old [sex] who presented with [cva/ ACUTE PULM EMBOLUS ] CONDITION AT DISCHARGE: Comment (persistent weakness) Discharge Medications Current Medications Albuterol/ Ipratropium (Duoneb) 3 ml RTQID NEB Last administered on 07/22/18at 10:46; Start 07/20/18 at 08:00 Albuterol/ Ipratropium (Duoneb) 3 ml 1X ONCE NEB Last administered on at 01:19; Start 07/20/18 at 01:15; Stop 07/20/18 at 01:16; Status DC Amlodipine Besylate (Norvasc) 10 mg DAILY PO Last administered on 07/22/18at 08: 27; Start 07/20/18 at 09:00 Aspirin (Ecotrin) 325 mg DAILYWBKFT PO Last administered on 07/22/18 08:27; Start 07/20/18 at 08:00 Atorvastatin Calcium (Lipitor) 20 mg DAILY08 PO Last administered on 07/22/18 08:27; Start 07/20/18 at 08:00 Cetirizine HCl (ZyrTEC) 10 mg DAILY PO Last administered on 07/22/18 08:27; Start 07/20/18 at 09:00 Dabigatran (Pradaxa) 75 mg DAILY PO ; Start 07/20/18 at 09:00; Stop 07/20/18 at 15:28; Status DC Furosemide (Lasix) 20 mg DAILY PO ; Start 07/20/18 at 09:00; Status Cancel Levothyroxine Sodium (Synthroid) 100 mcg DAILY06 PO Last administered on at 05:42; Start 07/20/18 at 06:00 Metoprolol Succinate (Toprol Xl) 50 mg BID PO Last administered on 07/22/18 08 :28; Start 07/20/18 at 09:00 Oseltamivir Phosphate (Tamiflu) 30 mg BID PO ; Start 07/20/18 at 09:00; Stop 07/25/18 at 08:59; Status Cancel Prednisone (Prednisone) 20 mg DAILY PO ; Start 07/20/18 at 09:00; Stop 07/20/18 at 15:28; Status DC Amiodarone HCl (Cordarone) 400 mg 1X ONCE PO Last administered on 07/20/18at 15 :38; Start 07/20/18 at 15:30; Stop 07/20/18 at 15:31; Status DC Amiodarone HCl (Cordarone) 200 mg DAILY PO Last administered on 07/22/18at 08:27 ; Start 07/21/18 at 09:00 Calcium Carbonate/ Glycine (Tums) 1,000 mg PRN AFTMEALHC PRN PO INDIGESTION Last administered on 07/20/18 16:01; Start 07/20/18 at 16:00 Potassium Chloride (Klor-Con) 20 meq 1X ONCE PO Last administered on 18:13; Start 07/20/18 at 17:15; Stop 07/20/18 at 17:18; Status DC Potassium Chloride (Klor-Con) 20 meq DAILYWBKFT PO Last administered on at 08:27; Start 07/21/18 at 08:00 Iohexol (Omnipaque 350 Mg/ml) 75 ml 1X ONCE IV ; Start 07/21/18 at 07:30; Stop 07/21/18 at 07:34; Status DC Info (CONTRAST GIVEN -- Rx MONITORING) 1 each PRN DAILY PRN MC SEE COMMENTS; Start 07/21/18 at 07:45; Stop 07/23/18 at 07:44 Heparin Sodium/ Dextrose 500 ml @ 0 mls/hr CONT PRN IV SEE I/O RECORD Last administered on 07/21/18at 12:51; Start 07/21/18 at 11:45; Stop 07/21/18 at 17:08 ; Status DC Heparin Sodium (Porcine) (Heparin Sodium) 2,300 unit PRN Q6HRS PRN IV FOR UFH LEVEL LESS THAN 0.2; Start 07/21/18 at 11:45; Stop 07/21/18 at 17:08; Status DC Heparin Sodium (Porcine) (Heparin Sodium) 1,150 unit PRN Q6HRS PRN IV FOR UFH LEVEL 0.2 - 0.29; Start 07/21/18 at 11:45; Stop 07/21/18 at 17:08; Status DC Apixaban (Eliquis) 10 mg BID PO ; Start 07/21/18 at 21:00; Stop 07/21/18 at 21: 00; Status DC Apixaban (Eliquis) 5 mg BID PO Last administered on 07/22/18at 08:27; Start at 21:00 Info (Anti-Coagulation Monitoring By Pharmacy) 1 each PRN DAILY PRN MC SEE COMMENTS Last administered on 07/22/18at 12:00; Start 07/22/18 at 12:00 Active Scripts Active Flyp Nebulizer (Nebulizer) 1 Each Each Each MC QIDPRN PRN PRN Cough/SOB 4 times daily for COPD/Influenza Duoneb 0.5-3(2.5) Mg/3 Ml (Albuterol/Ipratropium) 3 Ml Ampul.neb 3 Ml NEB RTQID 30 Days Toprol Xl (Metoprolol Succinate) 50 Mg Tab.er.24h 50 Mg PO BID 30 Days Amlodipine Besylate 10 Mg Tablet 10 Mg PO DAILY 30 Days Aspirin Ec (Aspirin) 325 Mg Tablet.dr 1 Tab PO DAILY Cetirizine Hcl 10 Mg Tablet 10 Mg PO DAILY MDD 1 Reported Amiodarone Hcl 200 Mg Tablet 1 Tab PO DAILY Lipitor (Atorvastatin Calcium) 20 Mg Tablet 20 Mg PO DAILY08 7 Days Synthroid (Levothyroxine Sodium) 75 Mcg Tablet 100 Mcg PO DAILY06 7 Days Vital Signs Vital Signs Date Time Temp Pulse Resp B/P (MAP) Pulse Ox O2 Delivery O2 Flow Rate FiO2 07/22/18 10:52 97.9 66 17 102/52 (69) 95 Room Air 97.9 Labs Laboratory Tests Test 07/21/18 13:40 07/21/18 18:45 07/22/18 05:15 White Blood Count 8.7 x10^3/uL (4.0-11.0) 8.0 x10^3/uL (4.0-11.0) Red Blood Count 4.15 x10^6/uL (3.50-5.40) 4.03 x10^6/uL (3.50-5.40) Hemoglobin 12.7 g/dL (12.0-15.5) 12.3 g/dL (12.0-15.5) Hematocrit 38.7 % (36.0-47.0) 37.3 % (36.0-47.0) Mean Corpuscular Volume 93 fL (79-100) 93 fL (79-100) Mean Corpuscular Hemoglobin 31 pg (25-35) 31 pg (25-35) Mean Corpuscular Hemoglobin Concent 33 g/dL (31-37) 33 g/dL (31-37) Red Cell Distribution Width 14.8 % (11.5-14.5) 14.9 % (11.5-14.5) Platelet Count 310 x10^3/uL (140-400) 281 x10^3/uL (140-400) Neutrophils (%) (Auto) 77 % (31-73) 69 % (31-73) Lymphocytes (%) (Auto) 13 % (24-48) 19 % (24-48) Monocytes (%) (Auto) 7 % (0-9) 8 % (0-9) Eosinophils (%) (Auto) 3 % (0-3) 4 % (0-3) Basophils (%) (Auto) 1 % (0-3) 0 % (0-3) Neutrophils # (Auto) 6.7 x10^3uL (1.8-7.7) 5.5 x10^3uL (1.8-7.7) Lymphocytes # (Auto) 1.1 x10^3/uL (1.0-4.8) 1.5 x10^3/uL (1.0-4.8) Monocytes # (Auto) 0.6 x10^3/uL (0.0-1.1) 0.6 x10^3/uL (0.0-1.1) Eosinophils # (Auto) 0.2 x10^3/uL (0.0-0.7) 0.3 x10^3/uL (0.0-0.7) Basophils # (Auto) 0.1 x10^3/uL (0.0-0.2) 0.0 x10^3/uL (0.0-0.2) Sodium Level 141 mmol/L (136-145) 144 mmol/L (136-145) Potassium Level 3.8 mmol/L (3.5-5.1) 3.9 mmol/L (3.5-5.1) Chloride Level 107 mmol/L (98-107) 108 mmol/L (98-107) Carbon Dioxide Level 27 mmol/L (21-32) 27 mmol/L (21-32) Anion Gap 7 (6-14) 9 (6-14) Blood Urea Nitrogen 23 mg/dL (7-20) 15 mg/dL (7-20) Creatinine 1.1 mg/dL (0.6-1.0) 1.1 mg/dL (0.6-1.0) Estimated GFR (Cockcroft-Gault) 46.8 46.8 Glucose Level 167 mg/dL (70-99) 106 mg/dL (70-99) Calcium Level 9.2 mg/dL (8.5-10.1) 9.2 mg/dL (8.5-10.1) Heparin Anti-Xa Act, Unfractionated 0.15 IU/mL (0.30-0.70) Creatine Kinase 25 U/L (26-192) Laboratory Tests Test 07/21/18 18:45 2/27/19 05:15 Heparin Anti-Xa Act, Unfractionated 0.15 IU/mL (0.30-0.70) Creatine Kinase 25 U/L (26-192) White Blood Count 8.0 x10^3/uL (4.0-11.0) Red Blood Count 4.03 x10^6/uL (3.50-5.40) Hemoglobin 12.3 g/dL (12.0-15.5) Hematocrit 37.3 % (36.0-47.0) Mean Corpuscular Volume 93 fL (79-100) Mean Corpuscular Hemoglobin 31 pg (25-35) Mean Corpuscular Hemoglobin Concent 33 g/dL (31-37) Red Cell Distribution Width 14.9 % (11.5-14.5) Platelet Count 281 x10^3/uL (140-400) Neutrophils (%) (Auto) 69 % (31-73) Lymphocytes (%) (Auto) 19 % (24-48) Monocytes (%) (Auto) 8 % (0-9) Eosinophils (%) (Auto) 4 % (0-3) Basophils (%) (Auto) 0 % (0-3) Neutrophils # (Auto) 5.5 x10^3uL (1.8-7.7) Lymphocytes # (Auto) 1.5 x10^3/uL (1.0-4.8) Monocytes # (Auto) 0.6 x10^3/uL (0.0-1.1) Eosinophils # (Auto) 0.3 x10^3/uL (0.0-0.7) Basophils # (Auto) 0.0 x10^3/uL (0.0-0.2) Sodium Level 144 mmol/L (136-145) Potassium Level 3.9 mmol/L (3.5-5.1) Chloride Level 108 mmol/L (98-107) Carbon Dioxide Level 27 mmol/L (21-32) Anion Gap 9 (6-14) Blood Urea Nitrogen 15 mg/dL (7-20) Creatinine 1.1 mg/dL (0.6-1.0) Estimated GFR (Cockcroft-Gault) 46.8 Glucose Level 106 mg/dL (70-99) Calcium Level 9.2 mg/dL (8.5-10.1) Allergies Allergies Coded Allergies Type Severity Reaction Last Updated Verified Penicillins Allergy Intermediate 11/02/17 Yes Disposition/Orders: Other (snf bed) Patient Instructions d/c planning 35 min SERAFIN BARRAGAN MD Jul 22, 2018 14:37
[2018-07-22] MEDS ORDERED: CALC200T23 PO (14:40)
[2018-07-22] MEDS ORDERED: APIX5TAB PO (14:40)
[2018-07-22] MEDS ORDERED: POTA20TA4 PO (14:40)
--- NOTE | 2018-07-22 14:41 | DISCH ---
DISCHARGE DISCHARGE INFORMATION: FINAL DIAGNOSIS Problems Medical Problems: (1) Syncopal episodes Status: Acute CONDITION ON DISCHARGE: Stable CODE STATUS: Code Status: Full [facility]: SNF STAY <30 DAYS: Yes HOSPICE: HOSPICE: No HOSPICE EVAL & TREAT: No LTAC: ADMIT TO LTAC: No POST DISCHARGE ORDERS: ACTIVITY ORDERS: Activity as tolerated WEIGHT BEARING STATUS: No restrictions DIET AFTER DISCHARGE: Cardiac CHECKS AFTER DISCHARGE: CHECKS AFTER DISCHARGE: Check blood press - daily TREATMENT/EQUIPMENT ORDERS: ADAPTIVE EQUIPMENT NEEDED: Front wheeled walker RESPIRATORY EQUIPMENT NEEDED: Nebulizer Physical Therapy For: Evalulation/Treatment Occupational Therapy For: Evaluation/Treatment Speech Language Pathology For: Evaluation/Treatment DISCHARGE MEDICATIONS: Home Meds Active Scripts Calcium Carbonate (CALCIUM CARBONATE) 200 Mg Tab.chew, 1000 MG PO PRN AFTMEALHC PRN for INDIGESTION for 14 Days, #30 TAB.CHEW Prov:SERAFIN BARRAGAN MD 07/22/18 Potassium Chloride (KLOR-CON M20) 20 Meq Tab.er.prt, 20 MEQ PO DAILYWBKFT for SUPPLEMENT for 14 Days, #14 TAB.SR Prov:SERAFIN BARRAGAN MD 07/22/18 Apixaban (ELIQUIS) 5 Mg Tablet, 5 MG PO BID for LUNG CLOT for 7 Days, #14 TAB Prov:SERAFIN BARRAGAN MD 07/22/18 Nebulizer (Flyp Nebulizer) 1 Each Each, EACH MC QIDPRN PRN for COUGH, #1 PRN Cough/SOB 4 times daily for COPD/Influenza Prov:SULTANA JIMENEZ MD 07/15/18 Ipratropium/Albuterol Sulfate (DUONEB 0.5-3(2.5) MG/3 ML) 3 Ml Ampul.neb, 3 ML NEB RTQID for COPD for 30 Days, #120 EACH 2 Refills Prov:SULTANA JIMENEZ MD 07/15/18 Metoprolol Succinate (Toprol Xl) 50 Mg Tab.er.24h, 50 MG PO BID for Afib, HTN for 30 Days, #60 TAB.SR 2 Refills Prov:SULTANA JIMENEZ MD 07/15/18 Amlodipine Besylate (AMLODIPINE BESYLATE) 10 Mg Tablet, 10 MG PO DAILY for HTN for 30 Days, #30 TAB 2 Refills Prov:SULTANA JIMENEZ MD 07/15/18 Aspirin (ASPIRIN EC) 325 Mg Tablet.dr, 1 TAB PO DAILY for hx multiple CVA, #30 TAB 5 Refills Prov:ROSIE AUGUST MD 07/08/18 Cetirizine Hcl (CETIRIZINE HCL) 10 Mg Tablet, 10 MG PO DAILY for itch MDD 1, # 14 TAB Prov:ROSIE AUGUST MD 07/08/18 Reported Medications Amiodarone Hcl (AMIODARONE HCL) 200 Mg Tablet, 1 TAB PO DAILY for unknown, #90 TAB 1 Refill 07/20/18 Atorvastatin Calcium (LIPITOR) 20 Mg Tablet, 20 MG PO DAILY08 for 7 Days 06/25/13 Levothyroxine Sodium (SYNTHROID) 75 Mcg Tablet, 100 MCG PO DAILY06 for 7 Days 06/25/13 Discontinued Reported Medications Aspirin (ASPIRIN) 81 Mg Tab.chew, 1 TAB PO DAILY for cardiac health, #30 TAB 3 Refills 07/04/18 Dabigatran Etexilate Mesylate (PRADAXA) 75 Mg Capsule, 75 MG PO 06/25/13 Furosemide (LASIX) 20 Mg Tablet, 20 MG PO 06/25/13 Metoprolol Succinate (TOPROL XL) 50 Mg Tab.er.24h, 25 MG PO BID for 7 Days 06/25/13 SERAFIN BARRAGAN MD Jul 22, 2018 14:41
[2018-07-22 14:54] VITALS: BP 108/57
--- NOTE | 2018-07-22 15:50 | NUR ---
Discharge Note: Emily [address] [place] [address] Discharge instructions and discharge home medications reviewed with Elizabeth at [facility] and a copy given. All questions have been answered and understanding verbalized. The following instructions and handouts were given: transfer of care, follow up instructions Discontinued lines and drains: 20 gauge left wrist, 20 gauge left AC, tips intact. patient tolerated well. Patient discharged to [facility] via transport.
== END 2018-07-22 15:46 | DRG 175 ==
LOC: ER 14:35 → 6 SOUTH 18:31
PROVIDERS: ADMIT Internal Medicine; ATTEND Internal Medicine
DX: I26.99 Other pulmonary embolism without acute cor pulmonale (principal); E43 Unspecified severe protein-calorie malnutrition; N39.0 Urinary tract infection, site not specified; G93.40 Encephalopathy, unspecified; J44.0 Chronic obstructive pulmonary disease with (acute) lower respiratory infection; E78.5 Hyperlipidemia, unspecified; E03.9 Hypothyroidism, unspecified; G31.84 Mild cognitive impairment of uncertain or unknown etiology; I45.10 Unspecified right bundle-branch block; I10 Essential (primary) hypertension; I48.0 Paroxysmal atrial fibrillation; I48.2 Chronic atrial fibrillation; R09.1 Pleurisy; E66.9 Obesity, unspecified; I73.9 Peripheral vascular disease, unspecified; Z68.31 Body mass index [BMI] 31.0-31.9, adult; Z90.49 Acquired absence of other specified parts of digestive tract; Z79.82 Long term (current) use of aspirin; Z87.891 Personal history of nicotine dependence; Z88.0 Allergy status to penicillin; I25.2 Old myocardial infarction; Z86.73 Personal history of transient ischemic attack (TIA), and cerebral infarction without residual deficits; Z82.49 Family history of ischemic heart disease and other diseases of the circulatory system
CPT/HCPCS: 36415; 70450; 71045; 71275; 80048; 80053; 81001; 82550; 82607; 83735; 84484; 85025; 85520; 85610; 87086; 93005; 93970; 94640; 94760; J7620; 92610; 99285-25